=== PATIENT | female | born 1930 | race Caucasian/White ===

== ENCOUNTER → 2016-05-31 | Outpatient (CLI) | payer MEDICARE, BC ==
[~2016-05-31] MED LIST: ADVAIR 250-501 EACH INH; AVAPRO300 MG PO; CATAPRES0.1 MG PO; COLACE100 MG PO; COUMADIN **IA2.5 MG PO; CRESTOR20 MG PO; DIOVAN160 MG PO; DULERA 200 MCG/51 EA INH; FLONASE 50 MCG/16 GM NOSE; GABAPENTIN100 MG PO; LOVENOX 8080 MG/0.8 SUB-Q; MILK OF MA400 MG/5 M PO; NORVASC2.5 MG PO; OMNICEF 300MG300 MG PO; PROTONIX40 MG PO; PROVENTIL OR V6.7 GM INH; SPIRIVA HANDIHA1 KIT INH; TENORMIN50 MG PO; TRADJENTA5 MG PO; TYLENOL EXTRA500 MG PO; TYLENOL PM EX-1 EACH PO; TYLENOL650 MG R; ULORIC40 MG PO; ZOFRAN4 MG PO
== END | disposition disaster alternative care site (69) ==
LOC: GRAD 15:00
DX: R29.6 Repeated falls (principal); R53.1 Weakness; C34.31 Malignant neoplasm of lower lobe, right bronchus or lung; G31.9 Degenerative disease of nervous system, unspecified

== ENCOUNTER 2016-06-01 10:50 | Inpatient (IN) | payer MEDICARE, BC ==
[~2016-06-01] VITALS: Ht 152.4 cm; Wt 66.7 kg
--- NOTE | ~2016-06-01 | DS ---
PATIENT'S NAME: VERENICE ROLLINS [facility] AGE: 85 Y [address] ROOM: [address] [address] LOCATION: [facility] ADMIT DATE: 06/01/2016 Discharge Summary DISCHARGE DATE: 06/09/2016 FAMILY PHYSICIAN: Yudith Plasencia MD ATTENDING PHYSICIAN: Yudith Plasencia PRINCIPAL DIAGNOSES: 1. Multiple embolic strokes. 2. Confusion and weakness due to multiple embolic strokes. 3. Metastatic lung cancer, stable. 4. Hypertension. 5. Adult onset diabetes. 6. Hyperlipidemia. 7. Coronary artery disease. 8. Chronic obstructive pulmonary disease. 9. Severe aortic stenosis. 10. Mitral stenosis. 11. Neuropathy. 12. Increased confusion with Keppra and Remeron. SUMMARY: Verenice is an 85-year-old female with known stage IV lung cancer. She is following up with Dr. Chanda Fragoso. She is having increasing problems with balance, falls, memory, and confusion. Dr. Fragoso performed a CAT scan, which showed a stroke, and an MRI which showed multiple embolic strokes. I admitted her for further workup and treatment. Neurology consult, speech therapy, occupational therapy, and physical therapy were consulted and followed with her. Telemetry shows sinus rhythm. Neurology was consulted. She was placed on heparin per protocol due to the identification of multiple embolic strokes. Echo showed severe MS, severe , no vegetations, but did not proceed with a RICK as family and I did not feel that would really change our course of treatment. Dr. Yao and Chandana followed while she was inpatient. She had an episode where she had increased confusion and ataxia. A CT scan showed some edema, but an MRI showed a new embolic stroke. She was switched from heparin to Lovenox b.i.d. and Coumadin has been initiated. Her INR is now up to 1.9. Care Management helped with discharge planning. We are going to try to go to assisted living, but with the additional stroke while in the hospital she is not able to do that. DISMISSAL: Verenice is dismissed on 06/09/2016 in stable condition. She will continue to receive physical therapy, speech therapy, and occupational therapy. She will continue receiving the Coumadin and the Lovenox both until her INR is above 2.0 and then the Lovenox will be discontinued. We will get Accu-Cheks b.i.d. She is off of diabetic meds at this time. We will give her supplements as well as regular food. There are to do pro-times Monday, Monday, and Monday and call to me. PATIENT'S NAME: VERENICE ROLLINS [facility] AGE: 85 Y [address] ROOM: [place] [address] LOCATION: [facility] ADMIT DATE: 06/01/2016 Discharge Summary DISCHARGE DATE: 06/09/2016 FAMILY PHYSICIAN: Yudith Plasencia MD ATTENDING PHYSICIAN: Yudith Plasencia DISMISSAL MEDICATIONS: 1. Amlodipine 2.5 mg at h.s., but hold if blood pressure less than 140. 2. Tenormin 75 mg daily, hold if blood pressure less than 140. 3. Colace 100 mg daily. 4. Lovenox 70 mg subcutaneously q.12 h., but stop when INR greater than 2.0. 5. Uloric 40 mg daily for gout. 6. Protonix 40 mg daily for ulcer prevention. 7. Crestor 20 mg at h.s. for hyperlipidemia. 8. Valsartan 160 mg daily at h.s. for hypertension. 9. Coumadin 5 mg daily for the embolic strokes. 10. Dulera 200/5 two puffs daily for COPD. 11. Spiriva 1 inhalation daily for COPD. 12. Tylenol 650 q.4 h. orally or rectally as needed. 13. Catapres 0.1 mg p.o. b.i.d. for blood pressure greater than 180 systolic. 14. Milk of magnesia 30 mL daily p.r.n. constipation. 15. Proventil 2 puffs q.4 h. as needed for COPD. DISCHARGE INSTRUCTIONS: She will follow up with me in 5 days to recheck, sooner if problems. The Remeron and Keppra have been discontinued today as she had marked increased confusion through the night. We will also check some labs prior to dismissal. She will follow up with Dr. Fragoso in [address] Oliveira in a week to see if she is a candidate for rehab. Long-term prognosis is poor. Short-term is fair for some rehab if she can recover from the stroke and there is a chance she could get to assisted living. That is the family's goal and her goal as well. MD ANICETO CARROLL/modl /[id number] d: 06/10/16 0349 t: 06/11/16 0820, DISCHARGE SUMMARY
--- NOTE | ~2016-06-01 | CON ---
PATIENT'S NAME: GAMA ROLLINS [facility] AGE: 85 Y [address] ROOM: [place] [address] LOCATION: [facility] ADMIT DATE: 06/01/2016 Consultation DISCHARGE DATE: FAMILY PHYSICIAN: Yudith Plasencia MD ATTENDING PHYSICIAN: Yudith Plasencia REFERRING PHYSICIAN: Preeti Fragoos MD This is a consult for Dr. Plasencia. This 85-year-old lady is referred for rehab evaluation, admitted on 06/01/2016 with weakness, confusion, and with several falls history. CT scan was done with MRI, which showed multiple emboli, ischemic in character, small scattered. She has at the present time, slight weakness on the left side very minimum. She reports that she was feeling unsteady too throughout this time. PAST MEDICAL HISTORY: Past history of significance: 1. Status post carpal tunnel release. 2. Colonoscopy. 3. Coronary artery disease. 4. DC. 5. History of tonsillectomy and adenectomy. 6. Port placement. 7. Aortic stenosis. 8. 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 9. Coronary artery disease. 10. Chronic kidney disease. 11. Diabetes type 2. 12. Previous stroke and she recovered from it well. 13. Diverticulosis. 14. Gout. 15. Dyslipidemia. 16. Hypertension. 17. Peripheral vascular disease. At the present time, she feels that she is much better, alert, oriented x4. She has good attention span. Her speech is clear and not wet. Cranial nerves 2 through 12 are within normal limits. She has minimal if any small slight flattening of the left nasofacial fold in her face. Otherwise, no weakness, no paresthesia, no visual cut. Her voice is clear and not wet. Tongue and soft palate are moving symmetrical. Cranial nerves 2 through 12 are within normal limits. Left side seems to be a little bit weaker if any, she is right- handed, however. Neurologically intact. PATIENT'S NAME: GAMA ROLLINS [facility] AGE: 85 Y [address] ROOM: [place] [address] LOCATION: [facility] ADMIT DATE: 06/01/2016 Consultation DISCHARGE DATE: FAMILY PHYSICIAN: Yudith Plasencia MD ATTENDING PHYSICIAN: Yudith Plasencia Deep tendon reflexes present and equal throughout. Bowel and bladder are well controlled. MEDICATIONS: She is on the following medications: 1. Gabapentin. 2. Atenolol. 3. Spiriva. 4. Heparin sodium. 5. KCl. 6. Catapres. 7. Norvasc. 8. Crestor. 9. Diovan. 10. Uloric. 11. Benadryl. 12. Tylenol. 13. Dulera. 14. Insulin aspartate, mild per protocol. 15. Glucagon. 16. Glucose. 17. Dextrose. 18. NaCl 0.9%. 19. Albuterol. 20. Protonix. ASSESSMENT AND PLAN: The patient could ambulate 120 feet with a walker with minimum assistance and few cues if any. This lady has made very good progress so far. I feel that she will benefit probably from a short stay in [facility] and if that is not available, probably she will be helped better with home health, however, she needs to have enough help to her depending on her sources so she could be safe. She is advised not to drive until she is evaluated and to avoid alcoholic drinks. Please see my notes and she will continue on PT, OT, and speech for the time being. I will be following alongside with you. Thank you for this referral. PATIENT'S NAME: GAMA ROLLINS [facility] AGE: 85 Y [address] ROOM: [place] [address] LOCATION: [facility] ADMIT DATE: 06/01/2016 Consultation DISCHARGE DATE: FAMILY PHYSICIAN: Yudith Plasencia MD ATTENDING PHYSICIAN: Yudith Plasencia TOMMIE WEINBERG MD WMS/modl /[id number] d: 06/02/162044 t: 06/03/16 0803, CONSULTATION REPORT
--- NOTE | ~2016-06-01 | NDGEN ---
PATIENT'S NAME: GAMA ROLLINS [facility] AGE: 85 Y [address] ROOM: [address] [address] LOCATION: [facility] ADMIT DATE: 06/01/2016 Neurodiagnostics DISCHARGE DATE: FAMILY PHYSICIAN: Yudith Plasencia MD ATTENDING PHYSICIAN: Yudith Plasencia PROCEDURE: ELECTROENCEPHALOGRAM DATE OF PROCEDURE: 06/08/2016 TEST: TECH: CLINICAL DIAGNOSIS: THE PATIENT IS AN 85-YEAR-OLD FEMALE WITH HISTORY OF STAGE IV LUNG CANCER, WHO HAS BEEN UNDERGOING WHOLE-BRAIN RADIATION. SHE HAS HAD SEVERAL FALLS AND WEAKNESS. DURATION OF EE minutes. REASON FOR EEG: Mental status changes. EEG FINDINGS: The patient is awake for majority of the EEG. During maximal activation on the 7 hertz background seen in the posterior head region, which was symmetrical, rhythmical, waxing and waning. Activation procedures included photic stimulation between 3-30 hertz, which did not show any abnormalities. There was a consistent T5 artifact seen for most of the EEG. CLASSIFICATION: Abnormal one, awake, drowsy 10/20 scalp electrodes: Background, slow. IMPRESSION: This EEG shows evidence of a mild diffuse encephalopathy. No epileptiform discharges or EEG seizures were seen during this recording. MD PEREZ MOISE/ernie /[id number] dtt: 06/13/16 1021 ANGELO RAM MOHAN R. dtd: 06/09/16 0638
--- NOTE | ~2016-06-01 | CON ---
PATIENT'S NAME: GAMA ROLLINS [facility] AGE: 85 Y [address] ROOM: [place] [id number] LOCATION: [facility] ADMIT DATE: 06/01/2016 Consultation DISCHARGE DATE: 06/09/2016 FAMILY PHYSICIAN: Yudith Plasencia MD ATTENDING PHYSICIAN: Yudith Plasencia DATE OF CONSULTATION: 06/08/2016 REFERRING PHYSICIAN: Preeti Fragoso MD PALLIATIVE MEDICINE CONSULT LOCATION: Neurotrauma Unit Room 6231. REFERRING PROVIDER: Dr. Plasencia. CHIEF COMPLAINT: Palliative care referral due to family's request for additional support and assistance with goals of care. HISTORY OF PRESENT ILLNESS: The patient is an 85-year-old female with a history of stage IV lung cancer, who recently completed chemotherapy and whole-brain radiation. At home, she had been having a number of falls. She lives at home with her , who also has a diagnosis of cancer and had recently undergone surgery on his left arm for this. She has been following with Dr. Fragoso for her cancer. A CT and an MRI of her head revealed multiple embolic strokes. It should also be noted the patient had recently been hospitalized for influenza and weakness. During this hospital stay, she has had some difficulties with expressive aphasia, which has improved per nursing and family over the course of the last couple of days, but this has also waxed and waned. Given the patient's multiple comorbidities and debility, Palliative Care has been consulted per family's request to assist with goals and support. PAST SURGICAL HISTORY: 1. Bilateral cataracts. 2. Tonsillectomy. 3. Two-vessel CABG. 4. Bilateral CEA. 5. Left carpal tunnel release. 6. Trigger finger surgery. PAST MEDICAL HISTORY: 1. 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 ROOM: [address] [place] [id number] LOCATION: [facility] ADMIT DATE: 06/01/2016 Consultation DISCHARGE DATE: 06/09/2016 FAMILY PHYSICIAN: Yudith Plasencia MD ATTENDING PHYSICIAN: Yudith Plasencia brain radiation. 2. Aortic stenosis. 3. Coronary artery disease. 4. Chronic kidney disease. 5. COPD. 6. Diabetes mellitus type 2. 7. History of previous strokes. 8. Diverticulosis. 9. Hyperlipidemia. 10. Hypertension. 11. Peripheral vascular disease. MEDICATIONS: Please see current MAR. ALLERGIES: TO SULFA, PERCOCET, AND LEVAQUIN. 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 He also has a cancer diagnosed and recently had surgery himself. She has a history of smoking and quit many years ago. She also has a daughter as well as 2 stepdaughters. FAMILY HISTORY: Mother had diabetes, CHF, and hypertension, and at the age of 77. Her father had a history of stroke, at the age of 86. She has 2 brothers with high hypertension. A sister who from breast cancer and a sister who of Parkinson's. REVIEW OF SYSTEMS: GENERAL: Appetite is down. Weight is down a little bit. Positive for fatigue. No recent fever, chills, or night sweats. HEENT: She has had a little bit of vision changes with stroke. Denies any changes in hearing. Denies a headache. No sinus congestion or postnasal drainage. She does have hearing aids and glasses. RESPIRATORY: Denies shortness of breath or cough. CARDIOVASCULAR: No chest pain, pressure, or palpitations. Denies orthopnea. No peripheral edema. GASTROINTESTINAL: No nausea, vomiting, diarrhea, or constipation. She has had some difficulty swallowing while here at the hospital. GENITOURINARY: No dysuria, urinary frequency, or urgency. MUSCULOSKELETAL: Positive for weakness, positive for multiple recent falls. No major injuries. Denies any pain or discomfort at this time. NEUROLOGICAL: She has had some issues with her memory as well as weakness. PATIENT'S NAME: GAMA ROLLINS [facility] AGE: 85 Y [address] ROOM: [address] [place] [address] LOCATION: [facility] ADMIT DATE: 06/01/2016 Consultation DISCHARGE DATE: 06/09/2016 FAMILY PHYSICIAN: Yudith Plasencia MD ATTENDING PHYSICIAN: Yudith Plasencia She has a history of seizures in the past, none recent. INTEGUMENTARY: Denies any open areas to her skin. PSYCHIATRIC: Denies feeling overly depressed or anxious. Denies hallucinations or insomnia. PHYSICAL EXAMINATION: VITAL SIGNS: Blood pressure 145/65, heart rate 80, temperature 98.2, respirations 18, O2 saturations 96% on room air. GENERAL: Reveals an alert, drowsy, though easily arousable, oriented, elderly white female, who is sitting up in the recliner, does not appear to be in any acute distress at this time. HEENT: Normocephalic, atraumatic. She does have a cap on with significant alopecia. Pupils are equal and reactive to light. Sclerae are anicteric. Conjunctivae are pink. Tongue and mucous membranes are moist and pink. Dentition is poor. CARDIOVASCULAR: Heart tones are regular rate and rhythm. I am able to note a murmur. RESPIRATORY: Respirations are regular and nonlabored. Lung sounds are clear to auscultation bilaterally. I am not able to note any rales, rhonchi, or wheezes. GASTROINTESTINAL: Abdomen is soft, nontender. Bowel sounds are present. MUSCULOSKELETAL: No significant joint deformities. Peripheral pulses are 1+ bilaterally. There is no clubbing, cyanosis, or edema. SKIN: Warm and dry. No unusual lesions. Does have some bruising to bilateral upper extremities. Palliative performance scale is 40%. IMPRESSION AND PLAN: 1. Fatigue. 2. Depression. I agree with the prescribed Remeron. The patient's daughter does express some concern over the patient being depressed. 3. Weakness. Continue with PT and OT. 4. Code status. The patient is a full code. She does have healthcare power of neurosurgical physician assistant on her chart. I visited with the patient, introduced the role of palliative care for support and goals of care conversations as well as symptom management as needed while she is undergoing therapies and treatment. Discussed with her her goals as well as her worries and concerns. At this point, she states her goal is to be able to rehabilitate, so she can get back home even if just for a short period of time. She states that she is worried about her significant other, Tal, and how they will manage as they both undergo treatment as she states that Tal's condition is most likely worse than he thinks it is. She understands that she is going to need a skilled stay for at least a while. She states that both her and Tal also have long-term care insurance that will assist them when PAT[facility]'S NAME: [facility] AGE: 85 Y [address] ROOM: [address] [address] LOCATION: [facility] ADMIT DATE: 06/01/2016 Consultation DISCHARGE DATE: 06/09/2016 FAMILY PHYSICIAN: Yudith Plasencia MD ATTENDING PHYSICIAN: Yudith Plasencia needed should they have to go stay at the [facility] versus an assisted living facility, and this gives her some relief. I also visited with the patient' significant other, Tal, briefly on the role of palliative care as well for additional support and symptom management. I will continue to follow this patient and family on an outpatient basis as well and assist as needed with goals of care conversations and symptom management. It should also be noted that I did visit with the patient's daughter on June 07, 2016, and introduced the role of palliative care for additional support and symptom management. I had a good 25-minute visit with her and provided emotional support and education on symptoms and disease introductory. Total visit today was 45 minutes, greater than 50% of this time was spent providing education, counseling, and support. Thank you for allowing me to assist this patient and family. SIERRA CUADRA, RIKA FOR DERIC LEVIN MD DLS/modl /[id number] CC: Yudith Plasencia MD d: 06/14/16 0252 t: 07/11/16 0915, CONSULTATION REPORT
--- NOTE | ~2016-06-01 | CON ---
[facility] AGE: 85 Y [address] ROOM: G6231 [place], [place] [address] LOCATION: [facility] ADMIT DATE: 06/01/2016 Consultation DISCHARGE DATE: FAMILY PHYSICIAN: Yudith Plasencia MD ATTENDING PHYSICIAN: Yudith Plasencia DATE OF CONSULTATION: 06/04/2016 REFERRING PHYSICIAN: Preeti Fragoso MD CARDIOLOGY CONSULTATION REASON FOR CARDIOLOGY CONSULTATION: Embolic stroke with history of heart disease. HISTORY OF PRESENT ILLNESS: This is an 85-year-old female with a history of aortic stenosis, hypertension, hyperlipidemia, coronary artery disease, and CABG. She normally follows cardiology care with Dr. Donald Phillips. She is currently admitted under the care of Dr. Yudith Plasencia with multiple embolic strokes as well as confusion. She has been having some increased episodes of fall recently. She denies any chest pain or palpitations. She does have some complaints of possible syncope or loss of consciousness during her falls due to being "fuzzy" on the details related to pre-fall and post-fall. She also admits that she has had some nausea and vomiting within the last week. At this time, she is resting comfortably in her chair in no acute distress. PAST MEDICAL HISTORY: 1. Hypertension. 2. Hyperlipidemia. 3. Coronary artery disease. 4. Aortic stenosis. 5. Lung cancer with metastases to the brain. 6. Chronic kidney disease. 7. COPD. 8. Diabetes mellitus. 9. Gout. 10. Peripheral vascular disease. PAST SURGICAL HISTORY: 1. Coronary artery bypass grafting. 2. Tonsillectomy. 3. Adenoidectomy. 4. Carpal tunnel release. FAMILY HISTORY: PATIENT'S NAME: GAMA ROLLINS [facility] AGE: 85 Y [address] ROOM: G6231 [place], [place] [address] LOCATION: [facility] ADMIT DATE: 06/01/2016 Consultation DISCHARGE DATE: FAMILY PHYSICIAN: Yudith Plasencia MD ATTENDING PHYSICIAN: Yudith Plasencia The patient's mother had a history of diabetes mellitus, type 2 as well as congestive heart failure and hypertension. Mother at the age of 77. The patient's father had multiple strokes and at the age of 86. She has two sisters with hypertension and one sister who due to breast cancer. She has another sister who due to Parkinson disease. SOCIAL HISTORY: The patient is a former cigarette smoker. She smoked 1 pack of cigarettes per day for a total of 30 years. She quit smoking in 1983. She denies alcohol or illicit drug use. CURRENT MEDICATIONS: 1. Dulera 200/5 mcg 2 puffs inhaled daily. 2. Spiriva 1 puff inhaled daily. 3. Benadryl 50 mg p.o. daily in the evening. 4. Coumadin 2 mg p.o. daily. 5. Crestor 20 mg p.o. daily in the evening. 6. Diovan 160 mg p.o. daily in the evening. 7. Potassium chloride 20 mEq p.o. twice daily. 8. Neurontin 100 mg p.o. daily. 9. Norvasc 2.5 mg p.o. daily in the evening. 10. Protonix 40 mg p.o. daily. 11. Tenormin 75 mg p.o. daily. 12. Tylenol 1000 mg p.o. daily in the evening. 13. Uloric 40 mg p.o. daily in the evening. 14. Lovenox 70 mg subcutaneous twice daily. 15. NovoLog subcutaneous on a mild sliding scale per a.c. and at bedtime Accu-Cheks. MEDICATION ALLERGIES: 1. Sulfa. 2. Quinolones specifically Levaquin causing sickness. 3. Oxycodone and Percocet causing sickness. REVIEW OF SYSTEMS: Pertinent positive review of systems are listed in the HPI. All other review of systems evaluated and negative. LABORATORY DATA AND IMAGING STUDIES: Diagnostics: Her echocardiogram shows an ejection fraction of 45 to 50% with severe diastolic dysfunction. She also has ahysygsx-zx-sdbamc mitral stenosis as well as aortic stenosis. PHYSICAL EXAMINATION: VITAL SIGNS: Temperature 98.2, pulse 84, respirations 18, blood pressure PATIENT'S NAME: GAMA ROLLINS [facility] AGE: 85 Y [address] ROOM: [address] [place], [place] [address] LOCATION: [facility] ADMIT DATE: 06/01/2016 Consultation DISCHARGE DATE: FAMILY PHYSICIAN: Yudith Plasencia MD ATTENDING PHYSICIAN: Yudith Plasencia 157/70, and O2 saturation 99% on room air. The patient weighs 68.9 kg. SKIN: [place], warm, and dry. EYES: Sclerae clear. No xanthelasmas. ENT: Oral mucosa is pink and moist. No jugular venous distention. No carotid bruits. CHEST: Respirations are even and unlabored. LUNGS: Clear to auscultation. HEART: Regular rate and rhythm. Normal S1, but she does have a diminished S2. She also has the presence of a 3/6 systolic murmur. ABDOMEN: Soft and nontender. MUSCULOSKELETAL: Equal muscle strength to upper and lower extremities bilaterally against resistance upon initial evaluation. Upon close measurement of her neurovascular status, she does have some very mild left- sided weakness noted. EXTREMITIES: Peripheral pulses palpable. No clubbing, cyanosis, or edema. PSYCHIATRIC: Alert and oriented. Mood and affect are appropriate. IMPRESSION AND PLAN: Per Dr. Green: 1. Severe aortic and mitral stenosis. She does have complaints of dyspnea, but no angina or documented syncope. 2. Coronary artery disease with a history of coronary artery bypass grafting. She has no complaints of angina and is currently tolerating her beta-milton and statin. She is followed by Dr. Donald Phillips for Cardiology and we will inform him of her admission. 3. Multiple embolic strokes. Currently been started on Coumadin and is on Lovenox as a bridge. 4. Stage IV lung cancer with brain metastases. 5. Hypertension. 6. Hyperlipidemia. 7. Chronic obstructive pulmonary disease. Given her stage IV lung cancer, her cardiac problems are of lesser importance as long as she is feeling well and tolerating her medical treatment. We have no further recommendations for cardiac workup or interventions. Thank you Dr. Yudith Plasencia for this consult. Thank you for allowing [facility] to interact in the care of this patient. CHA HERRERA MD DEH/ernie PATIENT'S NAME: GAMA ROLLINS [facility] AGE: 85 Y [address] ROOM: [address] [place] [id number] [facility] ADMIT DATE: 06/01/2016 Consultation DISCHARGE DATE: FAMILY PHYSICIAN: Yudith Plasencia MD ATTENDING PHYSICIAN: Yudith Plasencia /[id number] d: 06/05/16 1237 t: 06/09/16 1431, CONSULTATION REPORT
--- NOTE | ~2016-06-01 | CON ---
PATIENT'S NAME: GAMA ROLLINS [facility] AGE: 85 Y [address] ROOM: [address] [address] LOCATION: [facility] ADMIT DATE: 06/01/2016 Consultation DISCHARGE DATE: FAMILY PHYSICIAN: Yudith Plasencia MD ATTENDING PHYSICIAN: Yudith Plasencia REFERRING PHYSICIAN: Preeti Fragoso MD CHIEF COMPLAINT: Worsening mental status. HISTORY OF PRESENT ILLNESS: Neurology was consulted stat for change in mental status. Apparently, the last time she was at baseline was 3 hours prior to the call. That call was placed at 4:59, and I looked in at 5:05. Per nursing staff, the patient has some baseline aphasia, and she has some intermittent speech, but when they woke her up to check on her, she seemed to be more fragmented and not speaking clearly. No new weakness was seen. The patient seems a little bit confused as well, no seizures have been seen, but the patient was started on a seizure medication per the nursing staff. The patient has no brain metastasis from lung cancer and has received chemotherapy, and the patient is currently admitted for balance problems which led to an MRI which showed bihemispheric strokes suggestive of embolic phenomenon. The patient is currently on Coumadin and Lovenox. Her INR is 1.7. At the time of the call, the patient seems to have been improving and feels better speech is at her baseline, although she remains a little bit confused and lethargic. PHYSICAL EXAMINATION: She is alert and awake. She knows the month and her age. She can name. She can repeat. She can read sentences. Although she is awake, she is a little bit lethargic and dozes off from time to time, and sternal rub needs to be done to wake her up. Cranial Nerves: Extraocular movements are intact. No facial weakness. Field cut is difficult to assess since the patient kept her eyes closed and would not open them. Facial sensation is intact. Motor: Moves all extremities equally. The patient does not really want to cooperate, but she is able to do full strength against nurse and tries to get up on her own. Sensory intact to painful stimuli. Coordination: The patient refuses to cooperate for this part. DIAGNOSTIC DATA: Repeat CT of the head is pending. ASSESSMENT AND PLAN: Confusion. Unclear etiology. Could be especially stroke, could be hemorrhage, or it could be some postictal phenomenon from her known metastasis and recurrence and stroke . Right now, per nurse, her exam is at baseline, but she is a little bit confused. Again, this could probably fit PATIENT'S NAME: GAMA ROLLINS [facility] AGE: 85 Y [address] ROOM: [place] [address] LOCATION: [facility] ADMIT DATE: 06/01/2016 Consultation DISCHARGE DATE: FAMILY PHYSICIAN: Yudith Plasencia MD ATTENDING PHYSICIAN: Yudith Plasencia with a postictal period if she had a seizure that was unwitnessed and slowly improving. I would recommend to get a CT of the head without contrast stat to make sure that the patient has not had a hemorrhage. If the patient continues like this, repeat MRI of the brain should be done. TPA considered, not a candidate. Recent stroke and on Coumadin and Lovenox, and the exam is at baseline per nursing staff. Neurology to follow the patient today again to see how she is doing during the day. Consider repeat EEG as well. Check carotid Dopplers. Continue neurologic checks. PT, OT, and Speech Therapy. Lipid panel. Start statin if LDL is above 70. Call with questions. FABY CABELLO MD AF/modl /[id number] d: t: 06/09/16 1140, CONSULTATION REPORT
--- NOTE | ~2016-06-01 | CON ---
PATIENT'S NAME: GAMA ROLLINS [facility] AGE: 85 Y [address] ROOM: [address] [address] LOCATION: [facility] ADMIT DATE: 06/01/2016 Consultation DISCHARGE DATE: FAMILY PHYSICIAN: Yudith Plasencia MD ATTENDING PHYSICIAN: Yudith Plasencia DATE OF CONSULTATION: 06/02/2016 REFERRING PHYSICIAN: Preeti Fragoso MD NEUROLOGY CONSULTATION HISTORY OF PRESENT ILLNESS: The patient was seen in neurological consultation on 06/02/2016. Neurology briefly saw Ms. 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 Evidence on this admission showed small embolic CVAs on the MRI that were hardly visible on the CAT scan. These small strokes are fairly scattered and fairly punctate. Standpoint of a neurological compromise, the patient stated that she felt a bit off balance in her left leg, but overall did not notice any significant change in her particular weakness on one side of the body other than being generally weaker with some imbalance. Even stated that she had a fall a few days prior to coming to the hospital. However, she did have a recent hospitalization for the flu and had come back home a bit weaker. In general, the patient states that she does not have any headaches. Currently, she demonstrated fairly symmetric power in testing today of her arms and her legs. Thus she was sitting mostly in her chair, she was able to do some basic ambulation and her mental status remains quite normal. She denied any confusion. She denied any headaches. At the time of my seeing the patient, she had already been started on IV heparin. Based upon my discussion with Dr. Plasencia considering that the small embolic strokes will likely either due to in situ thrombosis from her metastatic lung cancer versus the small possibility she may be having small emboli from a cardiac valve. It was noted that on transthoracic echocardiogram, she had severely sclerosed mitral valve and aortic valve though no firm vegetation was seen. It is certainly possible that the advanced changes seen in the valves may serve as a nidus for a possibility of small marantic emboli. PAST MEDICAL HISTORY: On prior medical history, a significant medical history of multiple issues includes: 1. Diabetes, type 2. 2. Dyslipidemia. 3. Hypertension. PATIENT'S NAME: GAMA ROLLINS [facility] AGE: 85 Y [address] ROOM: [place] [address] LOCATION: [facility] ADMIT DATE: 06/01/2016 Consultation DISCHARGE DATE: FAMILY PHYSICIAN: Yudith Plasencia MD ATTENDING PHYSICIAN: Yudith Plasencia 4. Gout. 5. Peripheral vascular disease. 6. Coronary artery disease. 7. History of known aortic and mitral valve stenosis. 8. History of known lung cancer with metastasis discovered to the brain. CURRENT MEDICATIONS: A partial list of the multiple medications include: 1. Atenolol. 2. Catapres. 3. Norvasc. 4. Crestor. 5. Diovan. 6. Spiriva. 7. Protonix. PAST SURGICAL HISTORY: Surgical history includes: 1. Carpal tunnel release surgery. 2. Trigger finger release surgery. 3. Tonsillectomy and adenoidectomy. 4. Coronary artery bypass graft. IN-HOSPITAL MEDICATIONS: Include: 1. Enoxaparin 70 mg twice a day until therapeutic on warfarin. 2. Gabapentin 100 mg q. day. 3. Atenolol 75 mg q. day. 4. Potassium chloride 20 mEq p.o. b.i.d. 5. Clonidine 0.1 mg q.12 hours. 6. Amlodipine 2.5 mg p.o. at bedtime. 7. Atorvastatin 20 mg p.o. at bedtime. 8. Valsartan 160 mg at bedtime. 9. Regular insulin sliding scale coverage. REVIEW OF SYSTEMS: All systems were reviewed and were negative except for what was noted in the HPI. PHYSICAL EXAMINATION: GENERAL APPEARANCE: The patient is sitting up in her chair. She is in no acute distress. Her mental status is excellent. She speaks fluently and without any dysarthria or any language deficits. Naming of objects and parts of objects are normal. VITAL SIGNS: Show a pulse of 95 and regular, respiratory rate 12, blood PATIENT'S NAME: GAMA ROLLINS [facility] AGE: 85 Y [address] ROOM: [place] [address] LOCATION: [facility] ADMIT DATE: 06/01/2016 Consultation DISCHARGE DATE: FAMILY PHYSICIAN: Yudith Plasencia MD ATTENDING PHYSICIAN: Yudith Plasencia pressure 123/57, temperature 99.0 degrees, and pulse oxygenation is 94% on 2 L nasal cannula. NEUROLOGIC: In general, patient as mentioned above is alert and oriented. Answers all questions appropriately, though does not elaborate much on her medical history. She seems to be content but a bit frustrated. Cranial nerves 2 through 12 were intact. Motor exam revealed no evidence of any pronator drift. There is symmetric power in the bilateral upper extremities of 5/5, power in the left lower extremity. I sensed a bit of decreased tone compared to the right side. Plantar flexion, eversion, and inversion of the feet as well as leg extension was a bit weak at 4+/5. Though the patient can stand up on her own. She did not display any dizziness. Her gait was slow and cautious, but no evidence of circumduction of her gait. IMPRESSION AND PLAN: I agree with Dr. Plasencia concerning the use of anticoagulation with bridging of Lovenox dose twice daily with a goal to get the warfarin therapeutic at an INR between 2.0 to 2.5. It is likelihood of a hypercoagulable state with a small little in situ foci for hematologic spread of her lung cancer to the brain is certainly possible, but it is also possible that very small [place] emboli could be playing a role here that are not easily visualized on her sclerotic cardiac valves. The start of anticoagulation should not present an issue with bleeding per se in the brain due to the fact that these are very small punctate strokes and the risk for hemorrhagic conversion I do believe is very low. In general from a neurological exam, she is remarkably good and she has had a long history of dealing with her known cancer as well as receiving brain chemotherapy. She remains in good spirit and wants to continue with whatever treatment would be necessary. I discussed with her the general treatment for the thrombotic small emboli and she understands the nature of the protocol here on and out. Physical therapy, we will likely include either a short stay here in our facility or possibly going to a short-term skilled facility or even home with Home Health Care pending on the home resources available for her. She has multiple family members who have visited her in the hospital with good family support. I do want to thank Dr. Yudith Plasencia for allowing me to participate in discussions with her in the care of this patient. MD ONEIL MONROY/ernie PATIENT'S NAME: GAMA ROLLINS [facility] AGE: 85 Y [address] ROOM: [place] [address] LOCATION: [facility] ADMIT DATE: 06/01/2016 Consultation DISCHARGE DATE: FAMILY PHYSICIAN: Yudith Plasencia MD ATTENDING PHYSICIAN: Yudith Plasencia /[id number] d: 06/04/162227 t: 06/07/16 1554, CONSULTATION REPORT
--- NOTE | ~2016-06-01 | ECHO ---
Transthoracic Echocardiography Report (TTE) Demographics Patient Name GAMA ROLLINS Date of Study 06/02/2016 Patient Number [id number] Visit Number [id number] Date of 1930 Room Number G6231 Accession Number [id number] Gender Female Age 85 year(s) Referring Luis Angel Leslie MD Water Conservation Specialist Carson Matos Physician Physician Interpreting Norma Mcgregor Buggy Runner Physician A Supervising Ordering Physician Luis Angel Leslie MD, MD/P Nurse Stress Cash Poster Conclusions Contractility Score Summary At rest the following contractility abnormalities were noted: Hypokinesis of the Mid infero-septal, the Basal andry-septal and the Basal infero-septal segments. Contractility of all other segments appeared normal. Summary The estimated left ventricular ejection fraction is 45-50%. The left ventricle is normal in size . Mild concentric left ventricular hypertrophy. Restrictive filling pattern (severe diastolic dysfunction). Trivial mitral regurgitation by color Doppler. Moderate mitral annular calcification. Severe calcification of the mitral valve. Moderate to severe mitral valve stenosis. The mean gradient is 12 mmHg. The aortic valve is moderately sclerotic. There is moderate aortic regurgitation by color Doppler. There is moderate to severe aortic stenosis by the Continuity Equation. The peak velocity is 2.78 m/s, the mean gradient is 17 mmHg, and the valve area based on the continuity equation is 0.67 cm2, stroke volume index is 21 ml/m2. Procedure Type of Study TTE procedure:2D Echocardiogram, M-Mode, Doppler , Color Doppler. Procedure Date Date: 06/02/2016 Start: 09:29 AM Study Location: Inpatient Portable Technical Quality: Good visualization Indications:TIA. Appropriate Use Criteria: 9 Patient Status: Routine HR: 98 bpm BP: 146/67 mmHg Allergies - Other:(Levaquin, Percocet, Sulfa). M-Mode/2D Measurements LV Diastolic Dimension: 3.6 cm LV Systolic Dimension: 2.6 cm LV Septum Diastolic: 1.26 cm LV PW Diastolic: 1.15 cm AO Root Dimension: 2.2 cm Cardiac Output: 3.41 l/min LA Dimension: 2.4 cm EF Estimated: 40 % LVOT: 1.6 cm LVOT VTI: 17.3 cm RV Base: 2.78 cm LV Stroke volume: 34.77 ml RV Length: 5.37 cm TAPSE: 1.17 cm TDI-S': 8.88 cm/s Doppler Measurements AV Peak Velocity: 2.78 m/s MV Peak E-Wave: 1.76 m/s AV Peak Gradient: 30.91 mmHg AV Mean Gradient: 17 mmHg MV P1/2t: 58 msec LVOT Peak Velocity: 0.86 m/s MV Mean Gradient: 16 mmHg AV P1/2t: 263 msec MV Deceleration Time: 106 msec TR Gradient:30.25 mmHg PV Peak Velocity: 1.69 m/s Estimated RAP:3 mmHg PV Peak Gradient: 11.42 mmHg Estimated RVSP: 33 mmHg Estimated PASP: 33.25 mmHg E' Septal Velocity: 0.13 m/s E' Lateral Velocity: 0.12 m/s Findings Left Ventricle The left ventricle is normal in size . Mild concentric left ventricular hypertrophy. Restrictive filling pattern (severe diastolic dysfunction). Right Ventricle Mildly reduced right ventricular function. Mildly dilated right ventricle. Left Atrium Normal left atrial size. Right Atrium Normal right atrial size. IVC measures 1.22 cm with inspiratory collapse. Mitral Valve Trivial mitral regurgitation by color Doppler. Moderate mitral annular calcification. Severe calcification of the mitral valve. Moderate to severe mitral valve stenosis. The mean gradient is 12 mmHg. Aortic Valve The aortic valve is moderately sclerotic. There is moderate aortic regurgitation by color Doppler. There is moderate to severe aortic stenosis by the Continuity Equation. The peak velocity is 2.78 m/s, the mean gradient is 17 mmHg, and the valve area based on the continuity equation is 0.67 cm2, stroke volume index is 21 ml/m2. Tricuspid Valve Trivial tricuspid regurgitation by color Doppler. Pulmonic Valve Normal pulmonic valve structure and function. Pericardial Effusion No evidence of pericardial effusion. Miscellaneous Visualized portions of the aortic root and ascending aorta appear normal in size. Pleural Effusion No evidence of pleural effusion. Contractility Score LV regional wall motion:(0-Non visualized 1-Normal 2-Hypokinesis 3-Akinesis 4-Dyskinesis 5-Aneurysm) Signature dtt: José Luis Green dtd: 06/02/16 0929 Physician Self Edit
--- NOTE | ~2016-06-01 | HP ---
PATIENT'S NAME: VERENICE ROLLINS [facility] AGE: 85 Y [address] ROOM: [place] [address] LOCATION: [facility] ADMIT DATE: 06/01/2016 History & Physical DISCHARGE DATE: FAMILY PHYSICIAN: Yudith Plasencia MD ATTENDING PHYSICIAN: Yudith Plasencia DATE OF SERVICE: CHIEF COMPLAINT: Strokes. HISTORY OF PRESENT ILLNESS AND COURSE: Verenice is an 85-year-old female with a history of stage IV lung cancer who has been undergoing whole brain radiation and chemo. She was then seeing Dr. Fragoso and later had several falls and weakness. A CT of the head showed a recent CVA and MRI showed multiple embolic CVAs. Her balance has been poor, she has had multiple falls, she was recently hospitalized for influenza and weakness, and was doing better at home just until recently. PAST MEDICAL HISTORY: Operations include carpal tunnel release, colonoscopy, coronary artery bypass grafting, D and C, tonsillectomy and adenoidectomy, trigger finger surgery, and port placement. Illnesses include history of aortic stenosis, lung cancer with malignant mets to the brain, coronary artery disease, chronic kidney disease, COPD, adult- onset diabetes, prior stroke, diverticulosis, gout, hyperlipidemia, hypertension, and peripheral vascular disease. CURRENT MEDICATIONS: 1. Advair 250/50 one inhalation b.i.d. 2. Amlodipine 2.5 mg daily. 3. Atenolol 50 mg one and half tabs b.i.d. 4. Avapro 300 mg daily. 5. Clonidine 0.1 mg b.i.d. 6. Crestor 20 mg a day. 7. Flonase 1 squirt in nasal passages daily. 8. Gabapentin 100 mg b.i.d. as needed for nerve pain. 9. Proventil HFA 2 puffs q.6 h. p.r.n. 10. Spiriva 1 inhalation daily. 11. Tradjenta 5 mg daily. 12. Tylenol Extra Strength 500 mg 2 tabs at h.s. 13. Uloric 40 mg daily. ALLERGIES: PATIENT'S NAME: VERENICE ROLLINS [facility] AGE: 85 Y [address] ROOM: [place] [address] LOCATION: [facility] ADMIT DATE: 06/01/2016 History & Physical DISCHARGE DATE: FAMILY PHYSICIAN: Yudith Plasencia MD ATTENDING PHYSICIAN: Yudith Plasencia LEVAQUIN, AND SULFA. FAMILY HISTORY: Positive for Alzheimer's, osteoarthritis, rheumatoid arthritis, cardiovascular disease, congestive heart failure, osteoporosis, osteoarthritis, hypertension, diabetes, gout, depression, Parkinson's, stroke, cardiovascular disease, and thyroid disorders. SOCIAL HISTORY: She quit smoking many years ago. She is with her long-term chinese herbalist. She has good supportive family the one daughter and two stepdaughters who help look after her. Her immunizations are all up-to-date. She and her significant other live together independently; although, she has been doing that fairly precariously lately. REVIEW OF SYSTEMS: GENERAL: She has been weak, increased falls, confusion. ENT: She wears hearing aids and does have glasses. CARDIOVASCULAR: She denies any chest pain or shortness of breath. RESPIRATORY: Negative. GI: Some nausea. : Negative. MUSCULOSKELETAL: Negative. DERM: Negative. PSYCH: Negative. NEURO: Positive for confusion, decreased memory, weakness, more on the left- side than the right recently. PHYSICAL EXAMINATION: GENERAL: Verenice is a well-developed, well-nourished, 85-year-old female. She is alert, oriented, and cooperative. Oriented to person, place, and cooperative. VITAL SIGNS: Temp is 97.8, pulse 83 and regular, respirations 16, blood pressure 174/79, and O2 sat is 96% on room air. Weight 153, height 5 feet, 0 inches, BMI 29.8. HEENT: On exam, sclerae clear. Oropharynx is unremarkable. Teeth are in good repair. She has got a cap on and has a fair amount of alopecia. HEART: Regular rate and rhythm with a grade 2/6 systolic murmur heard best at the right second intercostal space. LUNGS: Lung ulloa reveals slight expiratory wheezes, good excursion, and no labored breathing. ABDOMEN: Soft, no organomegaly or masses, minimal discomfort with palpation. EXTREMITIES: Reveal no pitting edema. She actually has pretty good strength, ankle flexors and extensors, and both hand airline reservationist. PATIENT'S NAME: VERENICE ROLLINS [facility] AGE: 85 Y [address] ROOM: [place] [address] LOCATION: [facility] ADMIT DATE: 06/01/2016 History & Physical DISCHARGE DATE: FAMILY PHYSICIAN: Yudith Plasencia MD ATTENDING PHYSICIAN: Yudith Plasencia LABORATORY WORK: Her CBC and chemistry panel looked good. CPK and CK-MB are normal. Her troponin is slightly elevated at 0.059. A1c is 6.3. Head CT showed a large old infarct in the left occipital lobe and a hypodense focus in the right thalamic area showing a subacute infarct. MRI of the brain shows multiple embolic ischemic area, 13 punctate ischemic lesions on the right hemisphere, 1 in the left cerebellum, and 2 in the left hemisphere. ASSESSMENT: 1. Multiple embolic strokes with confusion, falls, and mild left-sided weakness. 2. 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 3. Recent influenza. 4. Hypertension. 5. Hyperlipidemia. 6. Adult-onset diabetes. 7. Prior tobacco use. 8. Chronic obstructive pulmonary disease. PLAN: She is being admitted to the hospital as an inpatient. We will put her on stroke protocol. We will order carotid ultrasound as well as an echocardiogram. We went ahead and started her on some heparin, but have cautioned her regarding fall risk and bleeding. She is on telemetry and we will keep her blood pressure between 140 and 180. She does wish to be a full code at this time. Prognosis is guarded. We will have Care Management to get involved as well as far as discharge planning. She would be a candidate for rehab if Dr. Oliveira agrees possibly [facility] or a different skilled facility. Her safety is our primary concern. MD ANICETO CARROLL/ernie /[id number] D: [id number] T: [id number] HISTORY & PHYSICAL
[~2016-06-01 10:50] MED LIST changes: -COLACE100 MG PO; -COUMADIN **IA2.5 MG PO; -DIOVAN160 MG PO; -DULERA 200 MCG/51 EA INH; -FLONASE 50 MCG/16 GM NOSE; -LOVENOX 8080 MG/0.8 SUB-Q; -MILK OF MA400 MG/5 M PO; -PROTONIX40 MG PO; -TYLENOL650 MG R; -ZOFRAN4 MG PO
--- NOTE | 2016-06-01 16:49 | NUR ---
Patient is 85 yo female admitted this afternoon after being seen in clinic for increasing number of falls, increasing confusion and inability to think clearly according to patient. patient lives in [place] w/her significant other. she states he is in the hospital after having surgery. 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 Educatio is given as documented. patient denies questions. pneumatics are on bilaterally. allergy and fall bracelets are on. call light is within reach. patient denies needs at this time. report is giveen to LELAND Ferreira.
[2016-06-01 17:27] LABS: BASOPHIL % 0.3 %; EOSINOPHIL # 0.1 K/uL (0.0-0.5); EOSINOPHIL % 1.8 %; HEMATOCRIT 34.3 % (30.0-46.0); HEMOGLOBIN 11.2 g/dL (10.0-15.0); IMMATURE GRANULOCYTE % 0.3 %; LYMPHOCYTE % 12.5 %; MCH 30.4 pg (27.0-34.0); MCHC 32.7 gm/dL (32.0-36.5); MONOCYTE # 0.9 K/uL (0.0-1.0); MONOCYTE % 11.5 %; MPV 9.4 fl (9.4-12.4); NEUTROPHIL # (ANC) 5.8 K/uL (1.8-7.8); NEUTROPHIL % 73.6 %; NRBC % 0 /100WBC (0-0.00); RBC 3.69 M/uL (3.00-5.00); RDW-CV 15.4 % (11.9-14.6); WBC 7.8 K/uL (4.0-11.0)
[2016-06-01 17:29] LABS: PLATELET COUNT 211 K/uL (150-450)
[2016-06-01 17:35] LABS: PROTIME 10.8 SECONDS (9.6-11.1); PTT 26 SECONDS (25-32)
[2016-06-01 17:48] LABS: ANION GAP 13.6 (10.0-19.0); CALCIUM 8.6 mg/dL (8.5-10.5); CREATININE 0.9 mg/dL (0.5-1.1); POTASSIUM 3.6 mMol/L (3.7-5.1)
--- NOTE | 2016-06-01 18:00 | NUR ---
Significant Event: Patient admitted at 1500. A/O X3. Denies N/T. Generalized weakness. NIHSS 0. Denies headache/N/T. Follows commands. Moves everything spontaneously. Blurred vision intermittently. VSS. Room air with sats in the mid 90s. LS clear and diminished. Voids per toilet. BS active X4. Port to be accessed in left chest. Stroke pathway initiated. Family at bedside. 1-2 assist. Accuchecks ACHS with SSI. Diabetic diet. Pleasant and cooeprative with cares. Follow up:
--- NOTE | 2016-06-02 04:26 | NUR ---
Significant Event: The patient is Alert and Oriented x3. Forgetful at times. Denies Numbness and Tingling. Moves all extremities spontaneously and to command. Up with 2 assist to the commode. NIHSS 0. VSS, Hypertensive at times. On room air. No complaints of pain. Port to her Left chest infusing NS at 75ml/hr and a Heparin Gtt. Accu checks ACHS. Scattered abrasions and bruising. Follow up:
[2016-06-02 04:31] LABS: ANION GAP 11.7 (10.0-19.0); CALCIUM 7.8 mg/dL (8.5-10.5); CREATININE 0.9 mg/dL (0.5-1.1); POTASSIUM 3.7 mMol/L (3.7-5.1)
--- NOTE | 2016-06-02 12:45 | NUR ---
Introduced self and role of care management to patient and her S.O.'s daughter. Patient lives in [place] with S.O. S.O. is currently in the hospital also. His daughter says he may be discharged later today, but he will not be able to assist patient at home for hardeep. Talked with them about inpatient rehab and skilled care; what each is, the differences and medicare coverage. Dr. Oliveira here to assess patient. Dr. Oliveira says they do not have any opening on GIRP at this time. Dr. Plasencia here and she says patient will need with SNF or GIRP before returning home. Rafi's daughter asks to talk with me in the arce. She, her sister and Verenice's daughter have been looking into ALFs and trying to encourage them to consider NURSING HOME. She says Verenice and Tal have health problems and it is getting harder for them to be at home. Told her Dr. Plasencia said Verenice would need SNF before going home or to [facility]. Talked with her about options for SNF in [place]. She will discuss options with Verenice's daughter. She had questions regarding ALFs. Answered her questions. She says their preference would be skilled for Verenice and then [facility] for both of them. Verenice does have a LTC policy and I encouraged them to review it to see what it covers. She will discuss with Verenice's daughter and then get back to me regarding SNF choices. Will follow.
--- NOTE | 2016-06-02 13:18 | NUR ---
CONSULT RECEIVED PER STROKE PROTOCOL. PT HAS LUNG CA W/ METS TO BRAIN. DEFERRING DIET ED AT THIS TIME D/T PRIMARY DX.
--- NOTE | 2016-06-02 16:20 | NUR ---
Significant Event:PT IS AAOX3. FORGETFUL. PUPIL EQUAL AND REACTIVE. NO NEW NUMBNESS OR TINLGING. DID STATE SHE HAS CHRONIC NUMBNESS TO LEFT HAND. CLEAR LUNG SOUNDS. ACTIVE BS. SCATTERED ABRASION. SCAB TO BACK OF HEAD. ACHS ACCU CHECKS. ON HEPARIN DRIP. NEXT PTTHP AT 1700. NO C/O PAIN. PORT ACCESS TO LEFT CHEST. PT NOT TO HAVE STRAWS PER SPEECH. UP 1A GB WALKER. NIHSS 0 Follow up:MONITOR LOC. HANDS ON WHEN TRANSFERING.
--- NOTE | 2016-06-03 04:23 | NUR ---
Pt A&Ox3. Forgetful at times. NIH scale remains at 0. Continues to report N/T to left hand, which is not a new finding. Denies pain throughout shift. Heparin gtt to left chest port, next PTTHP at 0600. Pleasant and cooperative.
--- NOTE | 2016-06-03 12:48 | NUR ---
Put patient on TCU waiting list. Spoke with staff at [facility] this a.m. and they have female beds and would consider patient. Left VMM for Rosario at [facility]. Spoke with Verenice regarding discharge plans and need for skilled care. She voices understanding. Asked her for her preferences and she says not [facility], but [facility] or [facility] would be OK. Asked her about radiation and chemo and she says she is done with both of them. Called Rosario at [facility] and they have beds and would consider patient. Information/referra faxed to both [facility] and [facility]. Will follow.
--- NOTE | 2016-06-03 15:53 | NUR ---
Asked to come speak with Tal's daughter and met with her in the waiting room. Updated her on the conversation with Verenice and where we are at with placement. She says her dad is going home today with [facility]. She says they may go visit [facility] and [facility] this w/e to see if they have a preference. She understands Verenice will be here through the w/e and both facilities will assess Verenice on Monday. Answered her questions. Will follow.
--- NOTE | 2016-06-03 17:03 | NUR ---
Significant Event:PT IS AAOX3. CAN BE FORGETFUL.PUPILS ARE EQUAL AND REACTIVE. DOES HAVE CHRONIC NUMBNESS AND TINGLING TO LEFT HAND AND FEET. CLEAR LUNG SOUNDS ACTIVE. 1 GB WALKER. DC HEPARIN GTT STARTED LOVENOX. NIHSS 0 Follow up:MONITOR LOC
--- NOTE | 2016-06-04 07:35 | NUR ---
Significant Event: Patient is alert and oriented x3. PERRLA- 3mm and brisk. Left and feet bilat chronic N/T. Left arm tremor. NIHSS-0. Keep SBP less than 180- catapres PRN. Room air. Diabetic- ADA diet-Accu checks ACHS NO STRAWS. Last BM 06/01. Up with 1A GB and walker. Left chest port accessed, nothing running. Takes large pills one at time with water. Bilat hearing aides. Follow up: GIRP or skilled when ready.
--- NOTE | 2016-06-04 19:07 | NUR ---
Significant Event: Patient's v/s stable. She is alert and orientated. Patient's stroke scale is 0. Patient is on room air, lungs are clear. Sinus rhythm with 1 degree AV block. Patient has accu checks ACHS. Patient has left chest port saline locked. Up with 1 assist, walker, gait belt. Patient on ADA diet. Denies pain. Follow up: SNF at time of discharge. Family is looking into options.
[2016-06-05 04:09] LABS: INR - (THERAPEUTIC) 1.1 (0.9-1.1); PROTIME 12.1 SECONDS (9.6-11.1)
--- NOTE | 2016-06-05 05:34 | NUR ---
Significant Event: Patient is alert and oriented x3. Follows commands. Denies pain. Denies KHAN. N/T to left hand and feet bilat- chronic. NIHSS-0. SR-murmur. Room air. Diabetic diet-accu checks ACHS. NO STRAWS. 1A GB and walker. Takes pill whole with water one to two at a time now. Left chest port-accessed. Coumadin started. Follow up: Accu checks. Monitor.
--- NOTE | 2016-06-05 13:27 | NUR ---
A - PT SCREENED D/T LOS. HT: 60" WT: 149# LABS: ACCUCHECK WNL-REAS MEDS: KCL, SSI, PROTONIX DIET: DIABETIC. INTAKE: MOSTLY 50-100% NEEDS: 2964-6818 KCAL (20-25 KCAL/KG), 67-80 G PRO (1-1.2 G/KG), 2010 ML FLUID (30 ML/KG) D - NO NUTRITION RELATED DIAGNOSIS IDENTIFIED AT THIS TIME. I - GOAL FOR INTAKE TO REMAIN 50-100% FOR DURATION OF STAY. M/E - WILL ASSIST NEEDED.
--- NOTE | 2016-06-05 20:07 | NUR ---
Significant Event: Alert and oriented. Room air. SBP 140's, 150's and 160's. HR 60's & 70's. Stroke scale is a 0. Port to left chest, flushes well with good blood return. ACHS accu checks 83, 149, 106. No correction needed. Up with 1 assist gait belt and walker. Pleasant and cooperative with cares. Follow up:
--- NOTE | 2016-06-06 04:36 | NUR ---
Significant Event: PATIENT IS ALERT AND ORIENTED X3. FOLLOWS COMMANDS. DENIES PAIN. DENIES KHAN. N/T TO LEFT HAND AND FEET BILAT-CHRONIC. SR-MURMUR. ROOM AIR-C/D. DIABETIC-ADA DIET-ACCU CHECKS ACHS. TAKES PILLS WHOLE WITH WATER- NO STRAWS. L) CHEST PORT- SL'D. 1A WITH GBA AND WALKER. ON COUMADIN. Follow up: MONITOR BLOOD GLUCOSE. GIRP OR SKILLED WITHIN THE NEXT COUPLE DAYS.
[2016-06-06 04:53] LABS: INR - (THERAPEUTIC) 1.1 (0.9-1.1); PROTIME 11.2 SECONDS (9.6-11.1)
--- NOTE | 2016-06-06 13:32 | NUR ---
Significant Event:PT IS AAOX3. NO NEW N/T. AT 1135 TODAY. PATIENT WAS HAVING TROUBLE FINDING HER WORDS AND BECAME APHASIC. NIHSS [address] SCAN DONE. REASSESSED ONE HOUR LATER AND PATIENT SPEECH HAD RETURNED AND NOW IS ABLE TO COMMUNICATE. STATED THAT SHE COULD SEE THE WORDS IN HER HEAD BUT JUST COULD NOT GET THEM TO COME OUT. ACTIVE BS. ON RA. CLEAR AND DIMINISHED LUNG SOUNDS. HEALS FLOATING DUE TO SKIN BREAKDOWN. LEFT CHEST PORT. UP 1A WALKER GB. SENIOR LIVING EVALUATED TODAY. Follow up:MONITOR LOC, NIHSS
--- NOTE | 2016-06-06 14:50 | NUR ---
Nilsa today talked to Em at [facility] and she will come assess patient at 1100 today. Talked with patient and daughter around 1100. Patient is having difficulty at this time with word finding and conversation. Patient's nurse is aware and folllowing up on this. Daughter says they visited [facility] and [facility] and prefer [facility] of those 2. She says they have talked to staff at [facility] and they came and assessed her this a.m. She says she believes they have talked Dr. Plasencia into [facility]. She says at [facility] patient and Bill can be together and they think that would be best. She says [facility] was going to review the information and get back to her today. Em came to assess while there and updated her. She says to let he know if something changes. Did talked with Deborah from [facility] and updated her. Talked to daughter, patient and S.O. Bill in the afternoon. Patient is able to converse at this time and speech and word finding much improved from this a.m. Daughter says [facility] called and the time they were meeting to review the information was changed and she has not heard a decision from them. She will let me know what she finds out from [facility]. Told her if I have not heard from her in the a.m. I will contact [facility] and she says that is fine. Will follow.
--- NOTE | 2016-06-07 04:38 | NUR ---
Significant Event: A&Ox3. NIHSS 1. No problems with speech during the night. Has chronic N&T to hands and feet. On tele SR. VSS. RA lungs clear. Last BM 06/05. Diabetic diet. No straws. Redness to groin encourage pt to shower today. Scab on back of head. Small area to R) heal. Generalized abrasions and bruising. L) chest port accessed flushes with with great blood return SL. Accuchecks AC&HS. Takes meds 2 at a time with water. Up 1 assist GBW. Follow up: MRI this am.
[2016-06-07 05:04] LABS: INR - (THERAPEUTIC) 1.1 (0.9-1.1); PROTIME 11.9 SECONDS (9.6-11.1)
[2016-06-07 06:15] LABS: ALBUMIN 3.4 gm/dL (3.5-5.0); ANION GAP 14.1 (10.0-19.0); CALCIUM 8.6 mg/dL (8.5-10.5); CREATININE 1.1 mg/dL (0.5-1.1); PHOSPHORUS 3.9 mg/dL (2.5-4.9); POTASSIUM 4.1 mMol/L (3.7-5.1)
--- NOTE | 2016-06-07 11:30 | NUR ---
Spoke with patient's daughter and [facility] does not have a room available. Talked with Dr. Plasencia and with patient's gait changes since yesterday she says patient needs SNF at this time and not [facility]. Talked with daughter about options for SNF. She is still interested in [facility] but says she feels that she needs to go visit [facility] and [facility] also to be sure about her decision. Called [facility] and [facility] and both have female beds. Daughter will go visit them today and let me know here decision. Called and updated Em at [facility]. Will follow.
--- NOTE | 2016-06-07 15:07 | NUR ---
Significant Event: vss. alert and oriented but confused on year at times. has had one bout of expressive aphasia this shift. up to bathroom multiple times this shift. one assist gaitbelt and walker. has left side neglect when up ambulating. blood sugars have been in 90s today. Follow up: monitor
[2016-06-08 03:46] LABS: INR - (THERAPEUTIC) 1.2 (0.9-1.1)
--- NOTE | 2016-06-08 04:34 | NUR ---
Significant Event: A&O to place and person, oriented to time at times. Pt has problems with word finding at times. Has some L) sided neglect noted when walking. NIHSS 4. Up 1A GBW. Chronic N&T to feet and hands. VSS. To hold BP meds if SBP <140. RA lungs clear. Last BM 06/07. Diabetic diet. No straws. L) chest port accessed flushes will with great blood return. Accuchecks AC&HS. Follow up: Placement at Assisted Facility. EEG today.
[2016-06-08 10:28] LABS: CREATININE 1.1 mg/dL (0.5-1.1)
--- NOTE | 2016-06-08 15:36 | NUR ---
Spoke with patient, her S.O. and her sister and her . They think Allegra selected [facility] but they are not sure. Spoke with patient's daughter, Allegra and she says after visiting facilities she has decided on [facility]. She would like to request patient have a bed by the window if possible and to be place on the private room waiting list at [facility]. She says Dr. Plasencia told her patient will probably transfer tomorrow. Called and updated Em and gave her the daughter's requests. Em says they would like an update sent and they will let me know if able to accept patient. Information faxed. Await decision from [facility]. Will follow.
--- NOTE | 2016-06-08 16:04 | NUR ---
Significant Event: Patient is oriented to person and place. Confused on year. Follows commands. Chronic N/T to left hand and bilateral feet. PERRLA. NIHSS- 4. Pulse palpable throughout. Lungs are diminished in the bases on RA. VSS. SBP 131-156. Accuchecks BID. Groin is red- moisture barrier applied. Right foot is bruised. Scab to the back of her head. Abrasions to left ma and abdomen. Blisters to bilateral helps. Pleasant and cooperative with care. Follow up: CT completed today. Looking for SNF
--- NOTE | 2016-06-08 16:40 | NUR ---
Call from Em at [facility] and they can accept patient tomorrow. Will call in the a.m. and set up time once Dr. Plasencia has rounded and decided if patient ready tomorrow. Will follow.
--- NOTE | 2016-06-09 02:09 | NUR ---
Significant Event: Patient alert to self, place, . Perrla. Moves all extremities spontaneously and to command. LLE weaker than right. L side facial droop. Chronic n/t to bilateral feet and left hand. Left peripheral vision impaired. NIHSS=5 this shift. Difficulty with word finding at times. Has been impulsive at times this shift. HTN at times. Lungs clear and dim on room air. No bm this shift. Transfers 1 assist GB/walker, unsteady. Port to left chest, saline locked. Denies pain. Follow up: Turn q 2. Alarms at all times.
[2016-06-09 03:47] LABS: INR - (THERAPEUTIC) 1.7 (0.9-1.1); PROTIME 18.9 SECONDS (9.6-11.1)
[2016-06-09] MEDS ORDERED: COLACE100 MG PO (11:19)
[2016-06-09] MEDS ORDERED: LOVENOX 8080 MG/0.8 SUB-Q (11:20)
[2016-06-09 11:22] LABS: BASOPHIL % 0.3 %; EOSINOPHIL # 0.1 K/uL (0.0-0.5); EOSINOPHIL % 0.9 %; HEMATOCRIT 33.5 % (30.0-46.0); HEMOGLOBIN 10.9 g/dL (10.0-15.0); IMMATURE GRANULOCYTE % 0.4 %; LYMPHOCYTE # 0.9 K/uL (0.8-4.0); LYMPHOCYTE % 9.5 %; MCH 30.8 pg (27.0-34.0); MCHC 32.5 gm/dL (32.0-36.5); MCV 94.6 fl (83.0-98.0); MONOCYTE # 0.9 K/uL (0.0-1.0); MPV 9.8 fl (9.4-12.4); NEUTROPHIL # (ANC) 7.8 K/uL (1.8-7.8); NEUTROPHIL % 79.9 %; NRBC % 0 /100WBC (0-0.00); PLATELET COUNT 280 K/uL (150-450); RBC 3.54 M/uL (3.00-5.00); RDW-CV 15.4 % (11.9-14.6); WBC 9.8 K/uL (4.0-11.0)
[2016-06-09] MEDS ORDERED: PROTONIX40 MG PO (11:22)
[2016-06-09] MEDS ORDERED: DIOVAN160 MG PO (11:24)
[2016-06-09 11:25] LABS: BILIRUBIN URINE NEGATIVE (NEGATIVE); BLOOD URINE NEGATIVE /UL (NEGATIVE); COLOR URINE YELLOW (YELLOW); GLUCOSE URINE NEGATIVE (NEGATIVE); KETONE URINE NEGATIVE (NEGATIVE); LEUKOCYTES URINE 25 /UL (NEGATIVE); NITRITE URINE NEGATIVE (NEGATIVE); PROTEIN URINE NEGATIVE (NEGATIVE); TURBIDITY URINE CLEAR (CLEAR); UROBILINOGEN URINE NORMAL (NORMAL)
[2016-06-09] MEDS ORDERED: COUMADIN **IA2.5 MG PO (11:25)
[2016-06-09] MEDS ORDERED: DULERA 200 MCG/51 EA INH (11:26)
[2016-06-09 11:32] LABS: BACTERIA URINE NEGATIVE (NEGATIVE); EPITHELIAL URINE NEGATIVE #/HPF (NEGATIVE); RBC URINE NEGATIVE #/HPF (NEGATIVE)
[2016-06-09] MEDS ORDERED: TYLENOL650 MG R (11:32)
[2016-06-09] MEDS ORDERED: CATAPRES0.1 MG PO (11:33)
[2016-06-09] MEDS ORDERED: MILK OF MA400 MG/5 M PO (11:34)
--- NOTE | 2016-06-09 11:40 | NUR ---
Notified this a.m. patient can transfer to [facility] today. Talked with Em at [facility] and they will pick patient up at 1230. Orders faxed to [facility]. Spoke with patient's daughter, S.O. and several other family members regarding transfer time. They are in agreement with transfer. Her nurse will call nurse to nurse report. Patient to transfer to [facility] today at 1230 via [facility] skilled care.
[2016-06-09 11:43] LABS: ALBUMIN 3.3 gm/dL (3.5-5.0); ANION GAP 13.5 (10.0-19.0); CALCIUM 8.3 mg/dL (8.5-10.5); CREATININE 1.2 mg/dL (0.5-1.1); POTASSIUM 4.5 mMol/L (3.7-5.1); TOTAL PROTEIN 6.7 g/dL (6.0-8.4)
[2016-06-09 11:44] LABS: TOTAL BILIRUBIN 0.3 mg/dL (0.0-1.5)
--- NOTE | 2016-06-09 12:02 | NUR ---
PATIENT IS 85 YEAR OLD FEMALE WHO CAME IN FOR STROKE. 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 WAS RECENTLY HERE FOR INFLUENZA AND PNEUMONIA. PT WAS HAVING INCREASE CONFUSION AND FALLING OFTEN. HAS MULTIPLE AREAS OF STROKE. PT IS ALERT TO PERSON AND PLACE. DOES HAVE EPISODE OF CONFUSION WITH WORD FINDING NOTED. MOVES ALL EXTREMITES. NIHSS 7. UP WITH GB WALKER. 1-2 ASSIST CLEAR AND DIMINISHED LUNG SOUNDS. ON RA. ACTIVE BS. BM TODAY. PORT TO LEFT CHEST. HAD SCABBED AREA TO BACK OF HEAD. ALSO HAS PRESSURE SPOT TO RIGHT HEEL. REDNESS IN GROIN HAS IMPROVED. TAKES MEDS WHOLE WITH NO ISSUE. DOES NEED HELP SETTING UP MEAL TRAY. PLAN TO DISCHARGE TO [facility].
== END 2016-06-09 13:15 | DRG 65 ==
LOC: GRAD 10:50 → GNTU 14:46
PROVIDERS: Internal Medicine Hematology & Oncology; ADMIT Family Medicine
DX: I63.10 Cerebral infarction due to embolism of unspecified precerebral artery (principal); C79.31 Secondary malignant neoplasm of brain; J44.9 Chronic obstructive pulmonary disease, unspecified; E11.22 Type 2 diabetes mellitus with diabetic chronic kidney disease; C34.31 Malignant neoplasm of lower lobe, right bronchus or lung; E11.40 Type 2 diabetes mellitus with diabetic neuropathy, unspecified; E78.5 Hyperlipidemia, unspecified; Z87.891 Personal history of nicotine dependence; Z95.1 Presence of aortocoronary bypass graft; I25.10 Atherosclerotic heart disease of native coronary artery without angina pectoris; I12.9 Hypertensive chronic kidney disease with stage 1 through stage 4 chronic kidney disease, or unspecified chronic kidney disease; N18.9 Chronic kidney disease, unspecified; M10.9 Gout, unspecified; I73.9 Peripheral vascular disease, unspecified; I35.0 Nonrheumatic aortic (valve) stenosis; I34.2 Nonrheumatic mitral (valve) stenosis; Z92.21 Personal history of antineoplastic chemotherapy; Z92.3 Personal history of irradiation; R29.6 Repeated falls; F32.9 Major depressive disorder, single episode, unspecified
CPT/HCPCS: A9270; A9577; J1642; J1644; J1650; J7030

== ENCOUNTER → 2016-06-10 | Outpatient (CLI) | payer MEDICARE, BC ==
[~2016-06-10] MED LIST changes: +COLACE100 MG PO; +COUMADIN **IA2.5 MG PO; +DIOVAN160 MG PO; +DULERA 200 MCG/51 EA INH; +FLONASE 50 MCG/16 GM NOSE; +LOVENOX 8080 MG/0.8 SUB-Q; +MILK OF MA400 MG/5 M PO; +PROTONIX40 MG PO; +TYLENOL650 MG R; +ZOFRAN4 MG PO
== END | disposition disaster alternative care site (69) ==
LOC: GRAD 13:30
DX: R46.89 Other symptoms and signs involving appearance and behavior (principal)

== ENCOUNTER → 2016-06-15 | Outpatient (CLI) | payer OTHER, MEDICARE, BC ==
[2016-06-15 11:52] LABS: INR - (THERAPEUTIC) 2.3 (0.9-1.1); PROTIME 26.1 SECONDS (9.6-11.1)
== END | disposition disaster alternative care site (69) ==
LOC: LJOHN2 11:41
PROVIDERS: Family Medicine
DX: I63.9 Cerebral infarction, unspecified (principal)

== ENCOUNTER → 2016-06-29 | Outpatient (CLI) | payer OTHER, MEDICARE, BC ==
[2016-06-29 08:33] LABS: INR - (THERAPEUTIC) 2.2 (0.9-1.1); PROTIME 24.5 SECONDS (9.6-11.1)
== END | disposition disaster alternative care site (69) ==
PROVIDERS: Family Medicine
DX: I63.9 Cerebral infarction, unspecified (principal); I10 Essential (primary) hypertension; Z95.5 Presence of coronary angioplasty implant and graft

== ENCOUNTER 2016-07-31 22:29 | Emergency (ER) | payer MEDICARE, BC ==
--- NOTE | ~2016-07-31 | ER ---
PATIENT'S NAME: GAMA ROLLINS [facility] AGE: 86 Y [address] ROOM: [place] [address] LOCATION: [facility] ADMIT DATE: 07/31/2016 ER/Outpatient Report DISCHARGE DATE: 07/31/2016 FAMILY PHYSICIAN: Yudith Plasencia MD ATTENDING PHYSICIAN: Ekta Marshall HISTORY OF PRESENT ILLNESS: An 86-year-old female, who presents today with chief complaint of episode of slurred speech and some confusion approximately 5.5 hours ago. Her significant other had noticed it. It has since resolved and the patient says she feels fine. She knows that she had some slurred speech at the time, but otherwise feels fine now. En route, EMS placed an IV. Her blood glucose checked was 119 there. They had called the patient's daughter who asked that they call EMS to evaluate her and see if they need to be brought in and then EMS suggested that she come to the hospital. The patient herself denied any headache, numbness, tingling, nausea, vomiting, chest pain, abdominal pain, difficulty walking, difficulty swallowing, or difficulty talking. She says that she has a history of a CVA back in June of this year with very mild residual left-sided weakness. She uses a walker and she takes Coumadin for it. PAST MEDICAL HISTORY: Includes multiple embolic strokes, confusion and weakness secondary to these embolic strokes, metastatic lung cancer, hypertension, ubg-qfixwda-lwtxfgeyu diabetes, hyperlipidemia, coronary artery disease, COPD, aortic stenosis, mitral stenosis, and neuropathy. PAST SURGICAL HISTORY: Includes carpal tunnel, colonoscopy, CABG, D and C, tonsillectomy, trigger finger release, and port placement. SOCIAL HISTORY: Ex-smoker, but quit in 1983. Denies any drugs or alcohol use. MEDS: Please see med list. ALLERGIES: TO PERCOCET, LEVAQUIN, AND SULFA. ROS: Reviewed by me and negative with the exception of those discussed in the HPI. PHYSICAL EXAMINATION: VITAL SIGNS: The patient is 68.7 kilos, blood pressure 181/85, heart rate 80, PATIENT'S NAME: GAMA ROLLINS [facility] AGE: 86 Y [address] ROOM: [place] [address] LOCATION: [facility] ADMIT DATE: 07/31/2016 ER/Outpatient Report DISCHARGE DATE: 07/31/2016 FAMILY PHYSICIAN: Yudith Plasencia MD ATTENDING PHYSICIAN: Ekta Marshall respiratory rate 18, temperature is 97.9, SpO2 is 98%. GENERAL: The patient is well appearing. She is alert and oriented x4. Her GCS is 15. HEENT: Her pupils are equal and reactive to light. She is able to move both extremities. PSYCH: She has a normal affect. She is cooperative and answering questions appropriately. HEART: Heart rate is irregular, looks like AFib on the monitor, but she has normal breath sounds. No increased work of breathing. ABDOMEN: Obese, but soft, nontender, and nondistended. SKIN: Warm, dry, and intact. NEUROLOGICAL: Pupils are equal and reactive to light. She tracks appropriately. She has no pronator drift. Strength bilateral upper extremities are 5/5. Lower extremities are 5/5 intact. Grasp strength bilateral upper and lower extremities. She is able to do lykhdr-tvzv-jqotks testing. Cranial nerves 2 through 12 are intact as well. EMERGENCY ROOM COURSE: We checked some lab work and did a CT head on her as well and we also checked some coags. So, her CT head shows no acute hemorrhage or definite acute infarct. She does have diffuse atrophy with moderate white matter changes and encephalomalacia in the left occipital lobe, but no acute hemorrhage or acute infarct noted. Her CBC shows a white count of 7.5, H and H 11.7 and 35.7, and platelets are 220. No bandemia. Her PTT is 28, PT is 17.3, INR is 1.64. Renal panel: Sodium is 140, potassium 4.2, chloride 104, CO2 29, anion gap 11.2, BUN 12 creatinine 1.1. GFR is 47, troponin is less than 0.04. I went back to re-evaluate the patient. She is back at neuro baseline mental status at this time. Her significant other is at bedside and he agrees that she is at baseline mental status. She knows who she is, where she is. She knows her dates, she knows that today is her birthday as well. So, I think she can go home. I did discuss this with Dr. Taylor covering for Dr. Plasencia. The only concern is that her INR is lower than what it should, it be is 1.64 when it should be between 2 to 3 to be working. So, I discussed this with Dr. Taylor. The patient currently takes alternating 4-5 mg doses 4 once a day, 5 once a day, and then 4, 5, 4, 5. Dr. Taylor recommended updating the dose up to 5 mg daily and have repeat INR check in 3 days. The patient understands this and understands the reasons to come back to get to the ER sooner. IMPRESSION: Transient ischemic attack, subtherapeutic INR. PATIENT'S NAME: GAMA ROLLINS [facility] AGE: 86 Y [address] ROOM: [place] [address] LOCATION: [facility] ADMIT DATE: 07/31/2016 ER/Outpatient Report DISCHARGE DATE: 07/31/2016 FAMILY PHYSICIAN: Yudith Plasencia MD ATTENDING PHYSICIAN: Ekta Marshall MD CAW/ernie /[id number] d: 08/01/16 0441 t: 08/04/16 1818, OUTPATIENT REPORT
[~2016-07-31 22:29] MED LIST changes: -FLONASE 50 MCG/16 GM NOSE; -ZOFRAN4 MG PO
[2016-07-31 22:56] LABS: BASOPHIL % 0.3 %; EOSINOPHIL # 0.2 K/uL (0.0-0.5); EOSINOPHIL % 2.7 %; HEMATOCRIT 35.7 % (30.0-46.0); HEMOGLOBIN 11.7 g/dL (10.0-15.0); IMMATURE GRANULOCYTE % 0.1 %; LYMPHOCYTE # 0.9 K/uL (0.8-4.0); LYMPHOCYTE % 12.1 %; MCH 29.8 pg (27.0-34.0); MCHC 32.8 gm/dL (32.0-36.5); MCV 90.8 fl (83.0-98.0); MONOCYTE % 13.1 %; MPV 9.8 fl (9.4-12.4); NEUTROPHIL # (ANC) 5.4 K/uL (1.8-7.8); NEUTROPHIL % 71.7 %; NRBC % 0 /100WBC (0-0.00); PLATELET COUNT 220 K/uL (150-450); RBC 3.93 M/uL (3.00-5.00); RDW-CV 13.2 % (11.9-14.6); WBC 7.5 K/uL (4.0-11.0)
[2016-07-31 23:07] LABS: INR - (THERAPEUTIC) 1.64 (0.92-1.07); PROTIME 17.3 SECONDS (9.8-11.4); PTT 28 SECONDS (25-32)
[2016-07-31 23:12] LABS: ALBUMIN 3.5 gm/dL (3.5-5.0); ANION GAP 11.2 (10.0-19.0); BLOOD UREA NITROGEN 12 mg/dL (6-24); CALCIUM 8.6 mg/dL (8.5-10.5); CHLORIDE 104 mMol/L (96-110); CO2 29 mMol/L (22-32); CREATININE 1.1 mg/dL (0.5-1.1); ESTIMATED GFR (MDRD EQUATION) 47; PHOSPHORUS 3.5 mg/dL (2.5-4.9); POTASSIUM 4.2 mMol/L (3.7-5.1); SODIUM 140 mMol/L (135-145)
== END 2016-07-31 23:59 | disposition disaster alternative care site (69) ==
LOC: GMED 22:29
PROVIDERS: Emergency Medicine
DX: G45.9 Transient cerebral ischemic attack, unspecified (principal); I10 Essential (primary) hypertension; E78.5 Hyperlipidemia, unspecified; E11.9 Type 2 diabetes mellitus without complications; J44.9 Chronic obstructive pulmonary disease, unspecified; Z90.89 Acquired absence of other organs; Z88.2 Allergy status to sulfonamides; Z88.8 Allergy status to other drugs, medicaments and biological substances; Z79.899 Other long term (current) drug therapy; Z79.01 Long term (current) use of anticoagulants

== ENCOUNTER → 2016-07-31 | Outpatient (CLI) | payer MEDICARE, BC | END | disposition disaster alternative care site (69) | LOC: GAMB 22:04 | DX: G45.9 Transient cerebral ischemic attack, unspecified (principal); I48.91 Unspecified atrial fibrillation; I10 Essential (primary) hypertension; R47.81 Slurred speech; Z79.01 Long term (current) use of anticoagulants; Z79.899 Other long term (current) drug therapy; Z88.1 Allergy status to other antibiotic agents; Z88.2 Allergy status to sulfonamides | CPT/HCPCS: A0425; A0427 ==

== ENCOUNTER → 2016-09-08 | Outpatient (CLI) | payer MEDICARE, BC ==
[~2016-09-08] MED LIST changes: +FLONASE 50 MCG/16 GM NOSE; +ZOFRAN4 MG PO
== END | disposition disaster alternative care site (69) ==
LOC: GRAD 08:27
DX: C34.31 Malignant neoplasm of lower lobe, right bronchus or lung (principal); C79.89 Secondary malignant neoplasm of other specified sites; N85.8 Other specified noninflammatory disorders of uterus; J10.08 Influenza due to other identified influenza virus with other specified pneumonia; I63.49 Cerebral infarction due to embolism of other cerebral artery

== ENCOUNTER 2016-09-13 11:11 | Inpatient (IN) | payer MEDICARE, BC ==
[~2016-09-13] VITALS: Ht 152.4 cm; Wt 65.4 kg
--- NOTE | ~2016-09-13 | HP ---
PATIENT'S NAME: GAMA ROLLINS [facility] AGE: 86 Y [address] ROOM: [place] [address] LOCATION: [facility] ADMIT DATE: 09/13/2016 History & Physical DISCHARGE DATE: FAMILY PHYSICIAN: Yudith Plasencia MD ATTENDING PHYSICIAN: Markus Cheatham DATE OF SERVICE: ADMISSION DIAGNOSES: 1. Headache. 2. Hypoxia. 3. Pulmonary embolism. 4. Metastatic lung cancer to the brain. HISTORY OF PRESENT ILLNESS: This is an 86-year-old white female, who normally sees Dr. Yudith Plasencia. She has diagnosis of metastatic lung cancer with metastatic disease to the neck as well as the head and also has a progressive right-sided lower lobe consolidating mass. She was seen by Dr. Fragoso yesterday. Getting out of the car, she did fall and bump her head. Her significant other stated that overnight, she was fractionally a little bit confused and so he brought her to the emergency room where her mentation had cleared but was found to be hypoxic. She was found to have right-sided pulmonary embolism. Her INR is subtherapeutic at 1.5. She also has a history of embolic strokes. She is subsequently admitted for oxygen, heparin, and further treatment. PAST MEDICAL HISTORY: Significant for aortic valve stenosis, metastatic lung cancer, coronary artery disease, chronic kidney disease, COPD, history of embolic strokes, type 2 diabetes, hyperlipidemia, hypertension, peripheral vascular disease. PAST SURGICAL HISTORY: Carpal tunnel release, colonoscopy, coronary artery bypass grafting, D and C, tonsillectomy and adenoidectomy, and trigger finger release. MEDICATIONS: At the time of admission include: 1. Tylenol. 2. Advair 250/50 twice per day. 3. Amlodipine 2.5 mg daily. 4. Atenolol 50 mg daily. 5. Clonidine 0.1 mg 2 times a day as needed for blood pressure greater than 180. 6. Colace 100 mg once a day. 7. Coumadin 2 mg daily. PATIENT'S NAME: GAMA ROLLINS [facility] AGE: 86 Y [address] ROOM: [place] [address] LOCATION: [facility] ADMIT DATE: 09/13/2016 History & Physical DISCHARGE DATE: FAMILY PHYSICIAN: Yudith Plasencia MD ATTENDING PHYSICIAN: Markus Cheatham 8. Crestor 20 mg per day. 9. Diovan 160 daily. 10. Flonase nasal spray. 11. Protonix 40 mg daily. 12. Proventil inhaler 2 puffs 4 times a day as needed. 13. Spiriva 18 mcg once per day. 14. Uloric 40 mg daily. 15. Zofran p.r.n. ALLERGIES TO MEDICATIONS: Include [place], Levaquin, and sulfa. FAMILY HISTORY: Significant for Alzheimer's disease, arthritis, cancers, CHF, dementia, depression, type 2 diabetes, gout, hypertension, osteoporosis, and thyroid disorder. REVIEW OF SYSTEMS: Unobtainable secondary to the patient being without her hearing aids. PHYSICAL EXAMINATION: GENERAL: She is resting at this time. She awakens briefly, but it is difficult to elicit much history. HEENT: Head is atraumatic. There is little hair. Throat is clear. NECK: Supple with some adenopathy noted on the right. LUNGS: Decreased breath sounds. Slight wheezes heard on the right. HEART: Regular with a systolic murmur. ABDOMEN: Soft, nontender, nondistended. LABORATORY STUDIES: Reveal an INR of 1.5. White count 9.5, hemoglobin 11.4. Chemistries to be essentially normal other than glucose of 186. ProBNP slightly is elevated at 3323 as well as D-dimer elevated significantly. IMPRESSION: 1. Metastatic lung cancer with brain metastasis, local and distant metastasis to the right lung and right-sided lymph nodes. 2. New pulmonary embolism. 3. History of embolic stroke. 4. Type 2 diabetes. 5. Hyperlipidemia. 6. Hypertension. 7. Chronic kidney disease. 8. Heart failure. PATIENT'S NAME: GAMA ROLLINS [facility] AGE: 86 Y [address] ROOM: [place] [address] LOCATION: [facility] ADMIT DATE: 09/13/2016 History & Physical DISCHARGE DATE: FAMILY PHYSICIAN: Yudith Plasencia MD ATTENDING PHYSICIAN: Markus Cheatham PLAN: This patient did receive some hydration prior to her CT scan to help protect her kidneys on the recommendations from Dr. Fragoso. We will at this point saline lock her IV. She has been started on heparin. We will give her an extra dose of Coumadin tonight and follow. Dr. Plasencia to assume care in the morning. MD DEL KO/barakl /[id number] D: [id number] T: [id number] HISTORY & PHYSICAL
--- NOTE | ~2016-09-13 | CON ---
PATIENT'S NAME: VERENICE ROLLINS [facility] AGE: 86 Y [address] ROOM: [address] [place] [id number] LOCATION: [facility] ADMIT DATE: 09/13/2016 Consultation DISCHARGE DATE: 09/18/2016 FAMILY PHYSICIAN: Yudith Plasencia MD ATTENDING PHYSICIAN: Markus Cheatham DATE OF CONSULTATION: 09/15/2016 REFERRING PHYSICIAN: Yudith Plasencia MD PALLIATIVE MEDICINE CONSULT LOCATION: [facility] CHIEF COMPLAINT: Palliative care referral for ongoing support and continue goals of care conversation. HISTORY OF PRESENT ILLNESS: The patient is an 86-year-old female with a history of metastatic lung cancer, who has been seeing Dr. Plasencia, who recently on a CT scan on September 08, 2016, was found to have markedly advancing neoplastic disease in the chest. On the day of admission, the patient went to the clinic for followup and fell in the parking lot. The patient was admitted with hypoxia and new diagnosis of pulmonary embolism. The patient also has a history of in June hospitalization due to embolic stroke. Palliative Care has been following intermittently at home following this hospitalization. She also has a history of multiple recent falls. She recently approximately 1 week ago moved into the [facility] with her significant other, who also has metastatic cancer. Given all this, Palliative Care has been reconsulted to continue to follow the patient during this hospitalization. PAST SURGICAL HISTORY: 1. Bilateral cataracts. 2. Tonsillectomy. 3. Two-Vessel CABG. 4. Bilateral CEA. 5. Carpal tunnel release. 6. Trigger finger surgery. PAST MEDICAL HISTORY: 1. Stage IV lung cancer, metastasis to the brain, status post whole brain radiation. 2. Aortic stenosis. 3. Coronary artery disease. PATIENT'S NAME: VERENICE ROLLINS [facility] AGE: 86 Y [address] ROOM: [address] [place] [id number] LOCATION: [facility] ADMIT DATE: 09/13/2016 Consultation DISCHARGE DATE: 09/18/2016 FAMILY PHYSICIAN: Yudith Plasencia MD ATTENDING PHYSICIAN: Markus Cheatham 4. Chronic kidney disease. 5. COPD. 6. Diabetes mellitus type 2. 7. History of embolic strokes, on Coumadin. 8. Diverticulosis. 9. Hyperlipidemia. 10. Hypertension. 11. Peripheral vascular disease. MEDICATIONS: Please see current MAR. ALLERGIES: SULFA, PERCOCET, AND LEVAQUIN. SOCIAL HISTORY: The patient is not but lives with her long-term significant other. They recently moved to [facility] approximately 1 week ago. Prior to this, they were living in their own home. Her significant other has a history of metastatic cancer as well and recently underwent a procedure. She has a history of smoking and quit many years ago. FAMILY HISTORY: Mother had diabetes, CHF, and hypertension, at the age of 77. Her father had a history of a stroke and at age of 86. She has 2 brothers with hypertension. A sister from breast cancer, and a sister of Parkinson's. REVIEW OF SYSTEMS: GENERAL: Positive for weight loss. Reports her appetite is fair. No recent fever, chills, or night sweats. Positive for fatigue. HEENT: No changes in vision or hearing. No headaches. Continues to have an open sore to the back of her head. No sinus congestion. RESPIRATORY: Complains of mild shortness of breath at rest, increases with activity. No cough. No wheezes. CARDIOVASCULAR: No chest pain, pressure, or palpitations. Denies orthopnea. No peripheral edema. GASTROINTESTINAL: No nausea, vomiting, diarrhea, or constipation. Denies difficulties chewing or swallowing. GENITOURINARY: No dysuria, urinary frequency, or urgency. MUSCULOSKELETAL: Denies any joint swelling or joint pain. No back pain. Does have a history of multiple falls and uses a walker to ambulate and does occasionally wear a helmet as well. NEUROLOGICAL: Positive for peripheral neuropathy. No seizures. Denies dizziness. PATIENT'S NAME: VERENICE ROLLINS [facility] AGE: 86 Y [address] ROOM: [address] [place] [address] [facility] ADMIT DATE: 09/13/2016 Consultation DISCHARGE DATE: 09/18/2016 FAMILY PHYSICIAN: Yudith Plasencia MD ATTENDING PHYSICIAN: Markus Cheatham INTEGUMENTARY: Does have an open area to the back of her head from her fall. Prior to this had been a large scabbed area. PSYCHIATRIC: Denies feeling overtly depressed or anxious. Denies hallucinations. Does have some forgetfulness and work-finding issues. These are not new. PHYSICAL EXAMINATION: VITAL SIGNS: Blood pressure 111/56, heart rate 93, temperature 97.4, respirations 24, O2 sats 96% on 2 L. GENERAL: Reveals an alert and oriented elderly white female, who does not appear to be in any acute distress, sitting in the recliner. She is noted to be somewhat forgetful, if not, slightly confused to time during the conversation. She is hard of hearing. HEENT: Normocephalic. Does have an open area to the back of her head with Steri-Strips. She has alopecia. Pupils are equal and reactive to light. Sclerae anicteric. Conjunctivae pink. Tongue and mucous membranes are moist and pink. Dentition is adequate. CARDIOVASCULAR: Heart tones are regular rate and rhythm. She does have a murmur. RESPIRATORY: Respirations are regular, nonlabored at rest. Lung sounds are clear and diminished bilaterally. GASTROINTESTINAL: Abdomen is soft, nontender. Bowel sounds are present. MUSCULOSKELETAL: No significant joint deformity. Peripheral pulses are 1+ bilaterally. No clubbing, cyanosis, or edema. SKIN: Warm and dry. No other unusual lesions or rashes. NEUROLOGICAL: Grossly intact. Mental status is unremarkable. IMPRESSION AND PLAN: 1. Shortness of breath. Her O2 has been weaned off today. We will continue to monitor and hopefully this will improve. 2. Recurrent falls. 3. Fatigue. 4. Code status. The patient is a DNR/DNI. She does have power of commercial attorney and living will paper work on her chart. The patient and family are known to Palliative Care Services from prior admission. I visited with the patient's daughter, Allegra, who is working on getting the patient and her significant other settled into [place]. There is some concern from Home Health Care in regard to needing more help at the independent living facility. This was discussed with Allegra. Allegra does talk about how she wishes her mom would go on hospice for the additional support. Though she does understand that Verenice wishes to pursue further chemo treatment, and she is okay with that. Allegra does plan to visit more about hospice with her mom over the next few days or a week. At this point, Allegra just wants her mom to have a good quality of life for whatever time is left with her significant other. Did also visit with Verenice a little bit, and Verenice PATIENT'S NAME: VERENICE ROLLINS [facility] AGE: 86 Y [address] ROOM: [id number] [place], [place] [address] [facility] ADMIT DATE: 09/13/2016 Consultation DISCHARGE DATE: 09/18/2016 FAMILY PHYSICIAN: Yudith Plasencia MD ATTENDING PHYSICIAN: Markus Cheatham talks about how chemo is her only option at this point, and she is also concerned about her significant other Bill's cancer treatment as well. Provided an emotional support and active listening. We will plan to continue following this patient while here in the hospital for additional support and symptoms as well as on the outpatient basis at [place] as well. Total visit was 45 minutes, greater than 50% of this time was spent providing education, counseling, and support. Thank you for allowing me to assist the patient and her family. SIERRA CUADRA, RIKA FOR DERIC LEVIN MD DLS/modl /[id number] CC: Yudith Plasencia MD d: 09/19/16 2249 t: 09/23/16 1541, CONSULTATION REPORT
--- NOTE | ~2016-09-13 | PUL ---
PATIENT'S NAME: GAMA ROLLINS [facility] AGE: 86 Y [address] ROOM: [address] [address] LOCATION: [facility] ADMIT DATE: 09/13/2016 Pulmonary DISCHARGE DATE: 09/18/2016 FAMILY PHYSICIAN: Yudith Plasencia MD ATTENDING PHYSICIAN: Markus Cheatham NAME OF PROCEDURE: Overnight Pulse Oximetry DATE OF PROCEDURE: September 17 to September 18, 2016 REASON FOR EXAM: Nocturnal hypoxemia RESULTS: The test was performed on room air. The recording time was 8 hours, 30 minutes, and 32 seconds, with a total valid sampling time of 7 hours, 56 minutes, and 12 seconds. The highest pulse was 109, lowest pulse was 78, with a mean pulse of 94. The highest SpO2 was 98%, lowest SpO2 was 69%, with a mean SpO2 of 88.2%. The patient spent 4 hours, 34 minutes, and 48 seconds with SpO2 less than 89%, representing 57.7% of the total sleep time. The desaturation event index was slightly elevated at 6.4. PHYSICIAN INTERPRETATION: The patient has evidence of significant nocturnal hypoxia and would qualify for supplemental oxygen as per Medicare criteria. However, because of the severity of her nocturnal hypoxia with an elevated desaturation event index a sleep study is recommended at this time. MD ALEJANDRO PASCAL/wilfrido /[id number] dtt: 09/23/16 1228 , DERIC LEVIN dtd: 09/22/16 0917
--- NOTE | ~2016-09-13 | ER ---
PATIENT'S NAME: GAMA ROLLINS [facility] AGE: 86 Y [address] ROOM: [place] [address] LOCATION: GPCU ADMIT DATE: 09/13/2016 ER/Outpatient Report DISCHARGE DATE: FAMILY PHYSICIAN: Yudith Plasencia MD ATTENDING PHYSICIAN: Markus Cheatham Time of Arrival: 1111 hours. Time of Evaluation: 1116 hours. IDENTIFICATION: An 86-year-old female. CHIEF COMPLAINT: Head injury. HISTORY OF PRESENT ILLNESS: The patient is an 86-year-old female, who fell yesterday while at Dr. Fragoso' office and struck the back of her head. No loss of consciousness. No headache. She had Steri-Strips applied at Dr. Fragoso' office, but last night her said she was restless and "dingy." She was not her normal self, was confused early this morning, but seems to be better at this time. The patient arrived short of breath, which she states is usual for her, but has been worse for the last 2 weeks. She uses an inhaler but not a nebulizer, and she is not normally on home O2. The patient has a history of stage IV lung cancer, who has completed chemotherapy and whole-brain radiation. Now, she has abdominal metastases and is initiating a new chemotherapy today. PAST MEDICAL HISTORY: ALLERGIES: SULFA, PERCOCET, AND LEVAQUIN. CURRENT MEDICATIONS: Were faxed from Dr. Fragoso' office and reviewed. Please refer the med recon form. MEDICAL PROBLEMS: Stage IV lung cancer with metastasis to the brain and abdomen, aortic stenosis, coronary artery disease, chronic kidney disease, COPD, diabetes mellitus type 2, CVA, diverticulosis, hyperlipidemia, hypertension, and peripheral vascular disease. PRIOR SURGERIES: Bilateral cataract surgery, tonsillectomy, 2- vessel CABG, bilateral carotid endarterectomy, left carpal tunnel release and trigger finger surgery. PATIENT'S NAME: GAMA ROLLINS [facility] AGE: 86 Y [address] ROOM: [place] [address] LOCATION: GPCU ADMIT DATE: 09/13/2016 ER/Outpatient Report DISCHARGE DATE: FAMILY PHYSICIAN: Yudith Plasencia MD ATTENDING PHYSICIAN: Markus Cheatham SOCIAL HISTORY: The patient lives here in [place]. She is retired. She is . Tobacco use, she quit in 1983. Alcohol use, denies. Drug use, denies. FAMILY HISTORY: Mother with diabetes, CHF, and hypertension, at age 77. Father with stroke, at age 86. Two brothers with hypertension. Sister secondary to breast cancer and a sister secondary to Parkinson's. REVIEW OF SYSTEMS: All systems reviewed and negative other than what is noted in the HPI. The patient denies any headache. She denies cough. No fever or chills. PHYSICAL EXAMINATION: VITAL SIGNS: Weight 64.2 kg. Blood pressure 163/70, pulse 104, respirations 21, temperature 98.2, and saturations 88% on room air. GENERAL: An 86-year-old female who appears short of breath, in no other distress. HEENT: Head: Normocephalic. She has a wig on. When I removed the wig, she does have Steri-Strips applied to lesion on her posterior scalp. No active bleeding. No surrounding erythema or drainage. Nontender. Eyes: Pupils equal and reactive to light and accommodation. Extraocular movements intact. Nose: Mucosa pink. No lesions or drainage. Mouth: No lesions. Pharynx benign. NECK: Supple. No lymphadenopathy. No nuchal rigidity. No tenderness to palpation of her cervical spine. LUNGS: Breath sounds are equal. She does have expiratory wheezes throughout and diminished air exchange. HEART: Regular rate and rhythm. No murmur, rub, or gallop. ABDOMEN: Bowel sounds present. Soft, nondistended, minimally tender to deep palpation. No rebound or guarding. SKIN: [place], warm, and dry. No lesions or rashes noted. NEURO: The patient is alert and oriented x4. Cranial nerves 2 through 12 grossly intact. Motor strength 5/5 throughout. Sensation is intact to light touch. No lower extremity edema. No calf tenderness. LABORATORY DATA: Hemoglobin 11.4, hematocrit 34.8, platelets 190, white count 9.5 with 76% segs, 5% bands. INR 1.51. ProBNP 3323, which is down from April when it was 7619. Sodium 134, potassium 4.3, chloride 101, CO2 of 25, BUN 11, creatinine 1.1, blood sugar 186. Liver enzymes normal. D-dimer elevated at 17.19. No previous D-dimer available for comparison. INR subtherapeutic at 1.51. INR was also subtherapeutic on July 31 at 1.64. The patient had a CT scan, chest, abdomen, and pelvis on September 08 without contrast showing an PATIENT'S NAME: GAMA ROLLINS [facility] AGE: 86 Y [address] ROOM: [place] [address] LOCATION: GPCU ADMIT DATE: 09/13/2016 ER/Outpatient Report DISCHARGE DATE: FAMILY PHYSICIAN: Yudith Plasencia MD ATTENDING PHYSICIAN: Markus Cheatham increased right pleural effusion, moderate to large in size; progressive right lower lobe consolidating mass; multiple new small nodules in the right upper lobe consistent with metastatic lesions; multiple new metastatic nodules in the left lung; right hilar adenopathy with a hilar mass; enlarging azygos node and pretracheal nodes; extensive adenopathy at the neck base; gallstones are incidentally noted; left pelvis cystic mass measuring 65 x 52 mm. Two-view chest x-ray done today: Areas of streaky patchy parenchymal opacity are present at the left lung base, right infrahilar region, right lung base, and right upper lung, worse at the right lung base since the prior study, remainder of the areas are grossly normal. CT scan, PE protocol: Positive study for pulmonary emboli involving subsegmental right lower lobe pulmonary arteries; moderate sized right pleural fluid collection, increased in volume since the prior study; stable areas of consolidation of the right upper, mid, and lower lungs as well as left lung base; stable bilateral pulmonary nodules per Dr. Werner, radiologist. IMPRESSION AND PLAN: 1. Pulmonary embolus. The patient is on Coumadin but subtherapeutic. The patient will be admitted for heparin per protocol by Dr. Cheatham for Dr. Plasencia, her primary care physician. 2. Stage IV lung cancer with brain metastasis, status post radiation therapy. The patient is to initiate a new chemotherapy today. Dr. Fragoso will follow. 3. Left adnexal mass. 4. Hypoxia. The patient is placed on O2 per nasal cannula at 2 L. She was given an albuterol aerosol treatment in the emergency room, which improved her symptoms, but her saturations remained less than 90% on room air. She will continue on O2 aerosol treatments as needed and all other medical problems are per the past medical history. MD GAIL GILLETTE/modl /[id number] d: 09/14/16 0126 t: 09/20/16 1013, OUTPATIENT REPORT
--- NOTE | ~2016-09-13 | DS ---
PATIENT'S NAME: VERENICE ROLLINS [facility] AGE: 86 Y [address] ROOM: [address] [place], [place] [address] LOCATION: GPCU ADMIT DATE: 09/13/2016 Discharge Summary DISCHARGE DATE: 09/18/2016 FAMILY PHYSICIAN: Yudith Plasencia MD ATTENDING PHYSICIAN: Markus Cheatham PRINCIPAL DIAGNOSES: 1. Bilateral pulmonary embolism with hypoxia. 2. Metastatic lung cancer, stage IV. 3. History of embolic stroke. 4. Chronic kidney disease. 5. Diastolic congestive heart failure. 6. Adult-onset diabetes type 2. 7. Hyperlipidemia. 8. Hypertension. 9. Nocturnal hypoxia. 10. Recurrent falls. 11. Gout. 12. GERD. SUMMARY: Verenice is an 86-year-old female with known lung cancer, who has been under chemo treatments with Dr. Fragoso. She had a recent fall and then had some problems with hypoxia and was evaluated in the emergency room. She is found to have bilateral pulmonary emboli and a subtherapeutic pro-time. Her Coumadin level has been difficult to manage as it was quite elevated two weeks ago and now subtherapeutic. She is on that for recurrent ischemic strokes. She recently found that her lung cancer was progressing, and so they are planning to start a new chemo in near future. During her hospitalization, she was placed on IV heparin, her Coumadin was increased and her INR followed. Dr. Yao consulted and recommended Lovenox subcutaneously q.12 hours for 3 months rather than Coumadin as the data is better for that in relation to this metastatic lung cancer. Palliative Care also followed and helps with comfort measures. Respiratory Therapy was consulted to obtain home oxygen therapy. She is able to be weaned off daytime oxygen, but her overnight trend oximetry was markedly positive for hypoxia through the night. Her sats score is low and is between 70 and 80% and the vast majority of the time she was below 90%, so 72% of the time between 80 and 90%. Her O2 saturation during the day will be recheck one more time prior to dismissal. Yesterday, she was able to be weaned off oxygen and maintained her sats above 90%. She is currently getting around with a walker. She is more steady and stable, has not had any recurrent falls. Her blood sugars were followed, she is placed on a sliding scale as needed. Her labs followed, she is feeling better, stronger and wanting to go home. I have had nursing staff work with teaching with her and significant other on the Lovenox shots. We will have home health continue to follow as well and then the home oxygen therapy at night will be new. PATIENT'S NAME: VERENICE ROLLINS [facility] AGE: 86 Y [address] ROOM: [place] [address] LOCATION: GPCU ADMIT DATE: 09/13/2016 Discharge Summary DISCHARGE DATE: 09/18/2016 FAMILY PHYSICIAN: Yudith Plasencia MD ATTENDING PHYSICIAN: Markus Cheatham DISMISSAL: Verenice is dismissed in improved condition on 09/18/2016. DISMISSAL MEDICATIONS: 1. Amlodipine 2.5 mg daily. 2. Tenormin 75 mg daily. 3. Uloric 40 mg at HS. 4. Protonix 40 mg daily. 5. Crestor 20 mg daily. 6. Dulera 200/5, two puffs daily. 7. Spiriva 1 inhalation daily. 8. Albuterol HFA 2 puffs every 4 hours as needed. 9. Tylenol 1000 mg every 4 hours as needed for pain. 10. Colace 100 mg daily. 11. Flonase one spray daily p.r.n. congestion. 12. Zofran 4 mg q.6 hours p.r.n. nausea. 13. She is to receive Lovenox 70 mg subcutaneously every 12 hours for three months, through 12/16/2016. We will monitor for any excessive bleeding. She will follow up with Dr. Fragoso next week about initiating a new chemo regimen. She will follow up with me in a week to recheck, sooner if problems. Prognosis guarded. MD ANICETO CARROLL/ernie /[id number] d: 09/19/16 0152 t: 09/19/16 1733, DISCHARGE SUMMARY
[~2016-09-13 11:11] MED LIST changes: -FLONASE 50 MCG/16 GM NOSE; -ZOFRAN4 MG PO
[2016-09-13 11:50] LABS: HEMATOCRIT 34.8 % (30.0-46.0); HEMOGLOBIN 11.4 g/dL (10.0-15.0); MCH 27.7 pg (27.0-34.0); MCHC 32.8 gm/dL (32.0-36.5); MPV 10.3 fl (9.4-12.4); PLATELET COUNT 190 K/uL (150-450); RBC 4.11 M/uL (3.00-5.00); RDW-CV 14.5 % (11.9-14.6); WBC 9.5 K/uL (4.0-11.0)
[2016-09-13 11:53] LABS: MCV 84.7 fl (83.0-98.0)
[2016-09-13 11:59] LABS: INR - (THERAPEUTIC) 1.51 (0.92-1.07); PROTIME 15.9 SECONDS (9.8-11.4)
[2016-09-13 12:09] LABS: ALBUMIN 3.2 gm/dL (3.5-5.0); ANION GAP 12.3 (10.0-19.0); CALCIUM 8.5 mg/dL (8.5-10.5); CREATININE 1.1 mg/dL (0.5-1.1); POTASSIUM 4.3 mMol/L (3.7-5.1); TOTAL BILIRUBIN 0.8 mg/dL (0.0-1.5); TOTAL PROTEIN 6.7 g/dL (6.0-8.4)
[2016-09-13 12:23] LABS: ABSOLUTE NEUTROPHIL CT (ANC) 7.7 K/uL (1.8-7.8); BANDED NEUTROPHIL # 0.5 K/uL (0.0-0.1); BANDED NEUTROPHILS % 5 %; LYMPHOCYTE # 1.1 K/uL (0.8-4.0); LYMPHOCYTE % 12 %; MONOCYTE # 0.5 K/uL (0.0-1.0); SEGMENTED NEUTROPHIL # 7.2 K/uL (1.8-7.8); SEGMENTED NEUTROPHIL % 76 %
[2016-09-13] MEDS ORDERED: ADVAIR 250-501 EACH INH (16:51)
[2016-09-13] MEDS ORDERED: FLONASE 50 MCG/16 GM NOSE (16:51)
[2016-09-13] MEDS ORDERED: ZOFRAN4 MG PO (16:51)
[2016-09-14 07:47] LABS: INR - (THERAPEUTIC) 1.44 (0.92-1.07); PROTIME 15.2 SECONDS (9.8-11.4)
[2016-09-14 07:55] LABS: ANION GAP 12.7 (10.0-19.0); CALCIUM 8.3 mg/dL (8.5-10.5); CREATININE 0.9 mg/dL (0.5-1.1); POTASSIUM 3.7 mMol/L (3.7-5.1)
[2016-09-15 05:05] LABS: HEMATOCRIT 32.9 % (30.0-46.0); MCH 28.4 pg (27.0-34.0); MCHC 33.4 gm/dL (32.0-36.5); MCV 84.8 fl (83.0-98.0); MPV 9.7 fl (9.4-12.4); PLATELET COUNT 182 K/uL (150-450); RBC 3.88 M/uL (3.00-5.00); RDW-CV 14.5 % (11.9-14.6); WBC 8.3 K/uL (4.0-11.0)
[2016-09-15 05:17] LABS: INR - (THERAPEUTIC) 1.83 (0.92-1.07); PROTIME 19.3 SECONDS (9.8-11.4)
[2016-09-15 05:25] LABS: ANION GAP 10.7 (10.0-19.0); BLOOD UREA NITROGEN 10 mg/dL (6-24); CALCIUM 8.2 mg/dL (8.5-10.5); CHLORIDE 103 mMol/L (96-110); CO2 25 mMol/L (22-32); CREATININE 0.7 mg/dL (0.5-1.1); ESTIMATED GFR (MDRD EQUATION) > 60; POTASSIUM 3.7 mMol/L (3.7-5.1); SODIUM 135 mMol/L (135-145)
[2016-09-15 05:49] LABS: ABSOLUTE NEUTROPHIL CT (ANC) 6.6 K/uL (1.8-7.8); BANDED NEUTROPHIL # 0.4 K/uL (0.0-0.1); BANDED NEUTROPHILS % 5 %; LYMPHOCYTE # 0.7 K/uL (0.8-4.0); LYMPHOCYTE % 8 %; MONOCYTE # 0.3 K/uL (0.0-1.0); SEGMENTED NEUTROPHIL # 6.2 K/uL (1.8-7.8); SEGMENTED NEUTROPHIL % 75 %
[2016-09-16 03:26] LABS: BASOPHIL % 0.4 %; EOSINOPHIL # 0.2 K/uL (0.0-0.5); EOSINOPHIL % 3.3 %; HEMATOCRIT 30.5 % (30.0-46.0); IMMATURE GRANULOCYTE % 0.3 %; LYMPHOCYTE # 0.5 K/uL (0.8-4.0); LYMPHOCYTE % 7.4 %; MCH 27.7 pg (27.0-34.0); MCHC 32.8 gm/dL (32.0-36.5); MCV 84.5 fl (83.0-98.0); MONOCYTE # 0.9 K/uL (0.0-1.0); MONOCYTE % 12.1 %; MPV 9.9 fl (9.4-12.4); NEUTROPHIL # (ANC) 5.6 K/uL (1.8-7.8); NEUTROPHIL % 76.5 %; NRBC % 0 /100WBC (0-0.00); PLATELET COUNT 199 K/uL (150-450); RBC 3.61 M/uL (3.00-5.00); RDW-CV 14.5 % (11.9-14.6); WBC 7.3 K/uL (4.0-11.0)
[2016-09-16 03:42] LABS: INR - (THERAPEUTIC) 1.81 (0.92-1.07); PROTIME 19.1 SECONDS (9.8-11.4)
[2016-09-18] MEDS ORDERED: LOVENOX 8080 MG/0.8 SUB-Q (12:24)
== END 2016-09-18 14:40 | disposition home health service (06) | DRG 176 ==
LOC: GACC 11:11 → GPCU 15:17
PROVIDERS: Family Medicine; Internal Medicine; ADMIT Family Medicine
PROC: 3E0F7GC Introduction of Other Therapeutic Substance into Respiratory Tract, Via Natural or Artificial Opening (ICD-10-PCS; principal; 2016-09-17)
DX: I26.99 Other pulmonary embolism without acute cor pulmonale (principal); I13.0 Hypertensive heart and chronic kidney disease with heart failure and stage 1 through stage 4 chronic kidney disease, or unspecified chronic kidney disease; C78.01 Secondary malignant neoplasm of right lung; C79.31 Secondary malignant neoplasm of brain; C79.89 Secondary malignant neoplasm of other specified sites; I50.30 Unspecified diastolic (congestive) heart failure; E11.22 Type 2 diabetes mellitus with diabetic chronic kidney disease; E78.5 Hyperlipidemia, unspecified; I25.10 Atherosclerotic heart disease of native coronary artery without angina pectoris; I35.0 Nonrheumatic aortic (valve) stenosis; I73.9 Peripheral vascular disease, unspecified; J44.9 Chronic obstructive pulmonary disease, unspecified; N18.9 Chronic kidney disease, unspecified; Z51.5 Encounter for palliative care; Z66 Do not resuscitate; Z95.1 Presence of aortocoronary bypass graft; Z98.49 Cataract extraction status, unspecified eye; Z86.73 Personal history of transient ischemic attack (TIA), and cerebral infarction without residual deficits; Z91.81 History of falling; Z79.01 Long term (current) use of anticoagulants; Z85.118 Personal history of other malignant neoplasm of bronchus and lung; G47.34 Idiopathic sleep related nonobstructive alveolar hypoventilation; Z87.891 Personal history of nicotine dependence
CPT/HCPCS: J1642; J1644; J1650; J7030; Q9967

== ENCOUNTER → 2016-09-26 | Outpatient (CLI) | payer MEDICARE, BC ==
[~2016-09-26] MED LIST changes: +FLONASE 50 MCG/16 GM NOSE; +ZOFRAN4 MG PO
== END | disposition disaster alternative care site (69) ==
LOC: GAMB 18:29
DX: T14.90 Injury, unspecified (principal); M25.562 Pain in left knee; I10 Essential (primary) hypertension; I63.9 Cerebral infarction, unspecified; R41.0 Disorientation, unspecified; Z79.01 Long term (current) use of anticoagulants; Z79.899 Other long term (current) drug therapy; Z88.8 Allergy status to other drugs, medicaments and biological substances; Z88.2 Allergy status to sulfonamides; W01.0XXA Fall on same level from slipping, tripping and stumbling without subsequent striking against object, initial encounter

== ENCOUNTER 2016-10-06 12:56 | Inpatient (IN) | payer MEDICARE, BC ==
[~2016-10-06] VITALS: Ht 152.4 cm; Wt 66.5 kg
--- NOTE | ~2016-10-06 | CON ---
PATIENT'S NAME: GAMA ROLLINS [facility] AGE: 86 Y [address] ROOM: [place] [address] LOCATION: GPCU ADMIT DATE: 10/06/2016 Consultation DISCHARGE DATE: FAMILY PHYSICIAN: Yudith Plasencia MD ATTENDING PHYSICIAN: Yolande Fowler DATE OF CONSULTATION: 10/07/2016 REFERRING PHYSICIAN: Preeti Fragoso MD LOCATION: [facility], room 6319. CHIEF COMPLAINT: Palliative care referral for ongoing goals of care conversation and hospice discussion. HISTORY OF PRESENT ILLNESS: The patient is an 86-year-old female, who is well known to Palliative Care Services due to a recent hospitalization, and Palliative Care has been following up weekly at home for additional support. 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 Since her last hospitalization from September 13 through the during which time she was treated for bilateral pulmonary embolism with hypoxia and sent home with Lovenox injections, the patient has been living at [facility] with Home Health Care checking in. The patient was found to be hypoxic by Home Health Care and brought to the emergency room for evaluation. The patient is currently status post cycle #[address] Fragoso, and she reports she is due for her second cycle next week. The patient in the ER was found to have possible pneumonia with a large right pleural effusion and was admitted for IV antibiotics and hypoxia. The patient has a history of recurrent falls. Over the last 3 or 4 months, the patient has been on a downhill decline. Given this, Palliative Care has been consulted to continue goals of care conversations. PREVIOUS OPERATIONS: 1. Bilateral cataracts. 2. Tonsillectomy. 3. Two-vessel CABG. 4. Bilateral CEA. 5. Carpal tunnel release. 6. Bilateral trigger finger surgery. PAST MEDICAL HISTORY: 1. 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 2. Recent bilateral PEs, currently on Lovenox. PATIENT'S NAME: GAMA ROLLINS [facility] AGE: 86 Y [address] ROOM: [place] [address] LOCATION: GPCU ADMIT DATE: 10/06/2016 Consultation DISCHARGE DATE: FAMILY PHYSICIAN: Yudith Plasencia MD ATTENDING PHYSICIAN: Yolande Fowler 3. Aortic valve stenosis. 4. Coronary artery disease. 5. Chronic kidney disease. 6. COPD. 7. History of previous embolic CVAs. 8. Diabetes mellitus type 2. 9. Hyperlipidemia. 10. Hypertension. 11. Peripheral vascular disease. MEDICATIONS: Home medication list: 1. Albuterol 2 puffs every 6 hours as needed. 2. Norvasc 2.5 mg daily. 3. Atenolol 75 mg daily. 4. Lovenox 70 mg subcu twice daily. 5. Uloric 40 mg daily. 6. Dulera 200/5 two puffs daily. 7. Zofran 4 mg every 4 hours as needed. 8. Protonix 40 mg daily. 9. Crestor 20 mg daily. 10. Spiriva 1 puff daily. 11. Diovan 160 mg at bedtime. ALLERGIES: SULFA, QUINOLONES, OXYCODONE, AND LEVOFLOXACIN. SOCIAL HISTORY: The patient is and lives with her long-term significant other. They recently moved to [facility]. She has a history of smoking and quit many years ago. Her significant other also has a history of metastatic cancer and is currently undergoing treatment for this. FAMILY HISTORY: Mother had diabetes, CHF, and hypertension and at the age of 77. Her father had a history of a stroke and at the age of 86. She has 2 brothers with hypertension and a sister who of Parkinson's and a sister who of breast cancer. REVIEW OF SYSTEMS: GENERAL: Positive for fatigue. Appetite has been good to fair. Denies any changes in her weight. No recent noted fever, chills, or night sweats. HEENT: No changes in vision. Her daughter notes that she has had increasing difficulties with her hearing. Denies any ringing in her ears or dizziness. No sinus congestion. No sore throat. PATIENT'S NAME: GAMA ROLLINS [facility] AGE: 86 Y [address] ROOM: [id number] [place], [place] [address] [facility] ADMIT DATE: 10/06/2016 Consultation DISCHARGE DATE: FAMILY PHYSICIAN: Yudith Plasencia MD ATTENDING PHYSICIAN: Yolande Fowler RESPIRATORY: Positive for shortness of breath at rest. Has a very bothersome productive cough. Denies orthopnea. No peripheral edema. GASTROINTESTINAL: No nausea, vomiting, diarrhea, or constipation. No blood in her stools. No difficulties chewing or swallowing. GENITOURINARY: No dysuria. Does have some urinary incontinency at times. MUSCULOSKELETAL: Denies any joint swelling or joint pain. No back pain. Has a history of recurrent falls and does use a walker to get around the house. NEUROLOGIC: Does have chronic neuropathy in her feet. No dizziness, syncope, or seizures. Positive for generalized weakness, nonspecific. INTEGUMENTARY: Does point to a dressing on her left ma that she received during a fall. PSYCHIATRIC: Denies feeling overtly depressed or anxious. Denies insomnia. PHYSICAL EXAMINATION: VITAL SIGNS: Blood pressure 133/65, heart rate 90, temperature 97.7, respirations 30, and O2 saturation 90% on 60% FiO2 on high-flow nasal cannula. GENERAL: Reveals an alert and oriented, extremely hard of hearing elderly white female, who is sitting up in the recliner. Does have mild respiratory distress after activity. HEENT: Normocephalic. She does have alopecia and a healing old scabbed area to the back of her head. Tongue and mucous membranes are moist and pink. Dentition is adequate. Her pupils are equal and reactive to light. Sclerae are non-anicteric. Conjunctivae are pink. CARDIOVASCULAR: Heart tones are regular rate and rhythm. She does have a murmur. RESPIRATORY: Respirations are slightly labored, tachypneic. Lung sounds are diminished bilaterally. Actually, lung sounds are improved from when I had previously examined her at home approximately 1 week ago. GASTROINTESTINAL: Abdomen is soft and nontender. Bowel sounds are present. No masses or organomegaly. MUSCULOSKELETAL: No significant joint deformities. Peripheral pulses are 1+ bilaterally. There is no clubbing, cyanosis, or edema. Skin is warm and dry. Does have a dressing to her left ma. NEUROLOGIC: Grossly intact. Mental status is unremarkable. IMPRESSION AND PLAN: 1. Dyspnea: We will continue on IV antibiotics for pneumonia. She does have a large right pleural effusion on admission. I wonder if a therapeutic thoracentesis would be helpful. We will continue to titrate O2. 2. Weakness. 3. Bilateral cerumen impaction. We will have nursing irrigate her ears to see if this helps with her hearing. 4. Code status. The patient is a DNR/DNI. PATIENT'S NAME: GAMA ROLLINS [facility] AGE: 86 Y [address] ROOM: [id number] [place], [place] [address] LOCATION: GPCU ADMIT DATE: 10/06/2016 Consultation DISCHARGE DATE: FAMILY PHYSICIAN: Yudith Plasencia MD ATTENDING PHYSICIAN: Yolande Fowler I met with the patient; her daughter, Allegra; and her significant other, Tal. I have discussed the patient's declining condition at length with the patient and her family, though this was very difficult given the degree of hearing loss that she has. I have discussed with the patient quality of life versus quantity of life. I discussed the fact that it may be time to transition from focusing on treatment and getting more time to more of a focus on quality of life and managing her symptoms. The patient reports that she does not have much quality left in her life and that she wants to be home. Given this, I did provide quite a bit of education to the patient and her family in regard to hospice services. The patient does tell me that she wants to think about this over the weekend, but does think that this sounds like a good thing. The patient does also report to me that she does not feel as though undergoing any further chemo treatments are going to be helpful in her situation and that at this point, she feels as though she needs to focus more on quality. I provided her emotional support and active listening for the patient and her family. We will give them time to discuss things further and we will re-evaluate on Monday. Answered the patient's and family's questions to their satisfaction. They denied any spiritual needs. We will continue to follow for support and ongoing goals of care conversation. We will eventually have to discuss with family as the patient is currently living in an independent living apartment at [facility] as her condition continues to decline, I am not sure that her significant other, Tal, who is planning to start radiation soon for a cancer in his arm, will be able to provide her the cares that she will need even with the additional support of hospice. We will have to discuss this further with the patient and her family as we see how this course is going to go. A total of 45 minutes was spent with this patient and family, greater than 50% of this time was spent providing education and counseling. Thank you for allowing me to assist this patient and family. SIERRA CUADRA, VISUALIZER FOR DERIC LEVIN MD DLS/modl /[id number] CC: Yudith Plasencia MD d: 10/10/163 t: 10/17/16 1654, CONSULTATION REPORT
--- NOTE | ~2016-10-06 | OR ---
PATIENT'S NAME: GAMA ROLLINS [facility] AGE: 86 Y [address] ROOM: [place] [address] [facility] AD[facility] DATE: 10/06/2016 OR/Procedure Report DISCHARGE DATE: FAMILY PHYSICIAN: Yudith Plasencia MD ATTENDING PHYSICIAN: Yolande Fowler SURGEON: Ovidio Flood MD REHAB CARE ASSISTANT: DATE OF PROCEDURE: 10/09/2016 PROCEDURE: Right-sided thoracentesis. INDICATION FOR PROCEDURE: Right-sided malignant pleural effusion. CONSENT: Risks and benefits of the procedure were discussed with the patient. She agrees to proceed with the procedure. PROCEDURE IN DETAIL: After the informed consent, proper time-out was called by me and the nursing staff. The right chest ultrasound was done by me and the area was marked on the skin, after that the area was prepped and draped in the usual fashion. The area was infiltrated with 1% lidocaine, then the thoracentesis needle was used to invade the pleural space. 835 mL of maroon- colored fluid was obtained. There was no immediate complication. The patient tolerated the procedure well. Thank you for allowing to participate in care of this patient. MD ETHEL DELONG/ernie /[id number] d: 10/10/16 0151 t: 11/14/16 0914, OPERATIVE SUMMARY
--- NOTE | ~2016-10-06 | CON ---
PATIENT'S NAME: GAMA ROLLINS [facility] AGE: 86 Y [address] 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 She was recently admitted on September 13 through September 18 with diagnosis of bilateral PE and hypoxia and was started on Lovenox. She had previously been on Coumadin due to history of previous embolic strokes, but there was difficulty maintaining therapeutic levels of Coumadin. The patient follows with Dr. Fragoso for her cancer. The patient has apparently planned for new chemotherapy and possible palliative care. The patient presented to the hospital with increased shortness of breath and slight hypotension. In the emergency room, she was found to be hypoxic in the 80s. In the emergency room, she was increased to 5 L nasal cannula with an oxygen saturation of 96%. She has a cough of thick yellow sputum. Her respiratory rate was about 36. Her blood pressure was within normal limits. Chest x-ray revealed possible right-sided pleural effusion. Pulmonary consultation was noted. PAST MEDICAL HISTORY: 1. Aortic valve stenosis. 2. Bilateral PE diagnosed in September of 2016, currently on Lovenox. 3. 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 4. Coronary artery disease. 5. Chronic kidney disease. 6. COPD. 7. History of previous embolic CVAs. 8. History of diverticulitis. 9. Type 2 diabetes mellitus. 10. Gout. 11. Hyperlipidemia. 12. Hypertension. 13. Peripheral vascular disease. PAST SURGICAL HISTORY: 1. Bilateral cataract surgery. 2. Left carpal tunnel surgery in 2011. PATIENT'S NAME: GAMA ROLLINS [facility] AGE: 86 Y [address] ROOM: [address] [address] LOCATION: GPCU ADMIT DATE: 10/06/2016 Consultation DISCHARGE DATE: FAMILY PHYSICIAN: Yudith Plasencia MD ATTENDING PHYSICIAN: Yolande Fowler 3. CABG in 2003. 4. Two-vessel. 5. D and C. 6. Tonsillectomy. 7. Surgery on bilateral thumbs for trigger finger. 8. Bilateral CEA. MEDICATIONS: 1. Proventil 2 puffs inhaled q.6 h. 2. Amlodipine 2.5 mg p.o. daily. 3. Atenolol 25 mg p.o. daily. 4. Lovenox 70 mg subcu b.i.d. every 12 hours. 5. Dulera 200 mcg/5 mcg HFA. 6. Zofran. 7. Protonix. 8. Crestor. 9. Spiriva. 10. Diovan. ALLERGIES: OXYCODONE, LEVAQUIN, AND SULFA. FAMILY HISTORY: Two brothers with hypertension. Sister with Parkinson disease. Sister from breast cancer. Her mother at the age of 77, had hypertension, diabetes, and CHF. Father at the age of 86, out of stroke. Another sister with rheumatoid arthritis. SOCIAL HISTORY: She recently moved to [facility] in early September with her significant other, Tal; they have been long-time significant others. She is also undergoing treatment for metastatic cancer. She is retired and she is a former smoker. Smoked from the age 22 to 51. PHYSICAL EXAMINATION: GENERAL: Upon initial evaluation, the patient is lying in bed, appears in mild respiratory distress. VITAL SIGNS: Including blood pressure 135/75, pulse of 95, respiratory rate of 25, O2 saturation is 92% on 8 L, and temperature is 98. HEENT: Eyes are nonicteric. Pupils are equal and reactive to light. The patient is very hard of hearing, even with the hearing aids turned on. Wet mucous membranes. No ear or nasal discharge noted. NECK: Supple. No lymphadenopathy. No jugular venous distention. LUNGS: Decreased bilateral air entry especially on the right. There is bilateral expiratory wheeze. PATIENT'S NAME: GAMA ROLLINS [facility] AGE: 86 Y [address] ROOM: [id number] [place], [place] [address] [facility]ATION: [facility] ADMIT DATE: 10/06/2016 Consultation DISCHARGE DATE: FAMILY PHYSICIAN: Yudith Plasencia MD ATTENDING PHYSICIAN: Yolande Fowler HEART: S1 and S2. No murmurs, rubs, or gallops. ABDOMEN: Soft and nontender. No palpable organs. LOWER EXTREMITIES: No edema, clubbing, or cyanosis. SKIN: Warm and dry. There are no noted lesions. LABORATORY DATA: Laboratory data at the time of evaluation includes UA showing positive leukocytes. Procalcitonin level was less than 0.05. White cell count is 8.3, hemoglobin 9.1, and platelets 287. PT is 11.1, INR is 1.06, and PTT is 37. Sodium is 131, potassium is 3.9, chloride 96, bicarbonate 28, BUN of 13, and creatinine 0.9. GFR 59, alkaline phosphatase 46, AST and ALT are 24 and 50 respectively, total bilirubin 0.6, lactate level is normal at 1.2. RADIOLOGY DATA: Chest x-ray shows worsening appearance since prior imaging, patchy opacity in the mid lower portion of the right lung and left lower lung consistent with infiltrate and atelectasis, right sided pleural effusion. ASSESSMENT AND PLAN: 1. Stage IV metastatic lung cancer, recently diagnosed with bilateral pulmonary embolism, presents with acute on chronic hypoxic respiratory failure with right-sided pleural effusion. 2. At the current point, given the right-sided pleural effusion, the new onset healthcare associated pneumonia. I would recommend to start the patient on antibiotics associated with healthcare associated pneumonia. I would start the patient on linezolid and piperacillin/tazobactam. 3. I would recommend immediate thoracentesis of the right chest for symptomatic relief. 4. Aggressive pulmonary toilet. 5. DuoNeb. 6. Chest PT. 7. We will follow up with you. Thank you for allowing me to participate in the care of this patient. MD ETHEL DELONG/ernie /[id number] d: 10/09/161810 t: 11/14/16910, CONSULTATION REPORT
--- NOTE | ~2016-10-06 | ER ---
PATIENT'S NAME: GAMA ROLLINS [facility] AGE: 86 Y [address] ROOM: [place] [address] LOCATION: GPCU ADMIT DATE: 10/06/2016 ER/Outpatient Report DISCHARGE DATE: FAMILY PHYSICIAN: Yudith Plasencia MD ATTENDING PHYSICIAN: Yolande Fowler Time of Arrival: 1256 hours. Time of Evaluation/Seen: 1305 hours. IDENTIFICATION: An 86-year-old female. CHIEF COMPLAINT: Short of breath. HISTORY OF PRESENT ILLNESS: The patient is an 86-year-old female who lives at [facility] with her . Home Health nurse was there today, and she was found to have orthostatic hypotension with a systolic blood pressure of 80, hypothermic with a temperature of 96.2, increasing O2 requirements, and shortness of breath. The patient has had a cough productive of thick yellow sputum. Most of the history is obtained from the staff and her as she is very hard of hearing. She was prescribed cefdinir on September 30. She has a recent hospitalization, September 13 through for bilateral pulmonary embolism with hypoxia. She has a history of metastatic lung cancer, managed by Dr. Fragoso and has initiated new form of chemotherapy that she is due to get next week. PAST MEDICAL HISTORY: ALLERGIES: NORCO, LEVAQUIN, AND SULFA. CURRENT MEDICATIONS: 1. Amlodipine 2.5 mg daily. 2. Rosuvastatin 20 mg daily. 3. Pantoprazole 40 mg daily. 4. Valsartan 160 mg daily. 5. Atenolol 50 mg one and half tablet daily. 6. Uloric 40 mg daily. 7. Lovenox 70 mg subcutaneous q.12 hours. MEDICAL PROBLEMS: 1. Bilateral pulmonary embolism, on anticoagulation with Lovenox. 2. Metastatic lung cancer, stage IV. Mets to the brain and abdomen. PATIENT'S NAME: GAMA ROLLINS [facility] AGE: 86 Y [address] ROOM: [place] [address] LOCATION: GPCU ADMIT DATE: 10/06/2016 ER/Outpatient Report DISCHARGE DATE: FAMILY PHYSICIAN: Yudith Plasencia MD ATTENDING PHYSICIAN: Yolande Fowler 3. Aortic stenosis. 4. Coronary artery disease. 5. Chronic kidney disease. 6. COPD. 7. Diabetes mellitus. 8. CVA. 9. Diverticulosis. 10. Hyperlipidemia. 11. Hypertension. 12. Peripheral vascular disease. PAST SURGICAL HISTORY: Prior Surgeries: 1. Bilateral cataract surgery. 2. Two-vessel CABG. 3. Bilateral carotid endarterectomy. 4. Left carpal tunnel release. 5. Trigger finger surgery. 6. Tonsils and adenoids. SOCIAL HISTORY: The patient lives here in [place] at [place] with her . She is retired. Tobacco use, quit in 1983. Alcohol use, denies. Drug use, denies. FAMILY HISTORY: Mother with diabetes, CHF, and hypertension, at age 77. Father with stroke, at age 86. Two brothers with hypertension, sister secondary to breast cancer, and a sister secondary to Parkinson's. REVIEW OF SYSTEMS: All systems reviewed and negative other than what is noted in the HPI. PHYSICAL EXAMINATION: VITAL SIGNS: Weight 65.9 kg. Blood pressure 169/100, pulse 80, respiratory rate is 36, temperature 96.7, and sats 94% on 5 L per nasal cannula. GENERAL: An 86-year-old female who is short of breath and fatigue in mild distress. HEENT: Head; normocephalic. The patient has a posterior scalp healing scabbed wound from a previous fall. Eyes; pupils equal and reactive to light and accommodation. Extraocular movements intact. Nose; mucosa pink. No lesions. Mouth; no lesions. Pharynx, benign. NECK: Supple. No lymphadenopathy. LUNGS: Coarse rhonchi and rales with inspiratory and expiratory wheezes. Worse in the left lower lobe. HEART: Regular rate and rhythm. PATIENT'S NAME: GAMA ROLLINS [facility] AGE: 86 Y [address] ROOM: [address] [address] LOCATION: GPCU ADMIT DATE: 10/06/2016 ER/Outpatient Report DISCHARGE DATE: FAMILY PHYSICIAN: Yudith Plasencia MD ATTENDING PHYSICIAN: Yolande Fowler ABDOMEN: Bowel sounds present. Soft, nondistended, nontender. SKIN: Pale, warm, and dry. NEUROLOGIC: No focal deficit. LABORATORY DATA AND IMAGING STUDIES: The patient's port was accessed. Blood cultures x2 have been drawn and those results are pending. Normal sinus rhythm at 80 beats per minute. No acute ST elevation or depression, first-degree AV block. Procalcitonin is less than 0.05. UA; specific gravity of 1.010, pH 6.5, leukocytes positive, 20-50 white cells, negative red cells, 5-10 epithelial cells, and rare bacteria. Culture and sensitivity pending. Hemoglobin 9.1, which is stable; hematocrit 27.4, platelets 287,000; white count 8.3, 85% segs; and 7% lymphocytes. INR 1.06, lactate 1.2. Sodium 131, potassium 3.8, chloride 96, CO2 of 28, BUN 13, creatinine 0.9, and blood sugar 129. Liver enzymes normal. Troponin I is less than 0.040. ProBNP 1561, which is improved from previous proBNP. One- view chest x-ray, worsening in x-ray appearance since prior imaging with patchy opacity in the mid and lower right lung, large right pleural fluid collection, and small left pleural effusion. IMPRESSION: 1. Pneumonia. Plan; pneumonia pathway was initiated. Zosyn 4.5 g IV x1. Azithromycin 500 mg IV x1. Albuterol aerosol treatment. 2. Acute hypoxic respiratory failure. The patient's O2 requirements have increased from her usual 2 L to 5 L. 3. Metastatic lung cancer. Palliative Care met with the patient during her last hospital stay and she is DNR/DNI, but does want aggressive treatment of pneumonia. 4. Urinary tract infection. Antibiotics initiated here in the emergency room. 5. Anemia, stable. 6. Mild hyponatremia. 7. History of pulmonary embolism, on chronic anticoagulation with Lovenox. The patient was taken to the floor, but is in very guarded condition, will be admitted per Dr. Fowler for Dr. Plasencia. MARJAN HAINES MD CAR/modl /[id number] d: 10/06/16 2259 t: 10/07/16 0629, OUTPATIENT REPORT
--- NOTE | ~2016-10-06 | DS ---
PATIENT'S NAME: VERENICE ROLLINS [facility] AGE: 86 Y [address] ROOM: [address] [address] LOCATION: GPCU ADMIT DATE: 10/06/2016 Discharge Summary DISCHARGE DATE: 10/14/2016 FAMILY PHYSICIAN: Yudith Plasencia MD ATTENDING PHYSICIAN: Yolande Fowler SUMMARY DATE OF : 10/14/2016. PRINCIPAL DIAGNOSES: 1. 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 2. Tentatively pneumonia but found not to be pneumonia. 3. Acute hypoxic respiratory arrest due to number one. PROCEDURES: Include thoracentesis x2. SUMMARY: Verenice is an 86-year-old female, who is admitted for acute respiratory distress. Dr. Yolande Fowler admitted her. See her H and P. She was placed on antibiotics empirically. Dr. Flood was consulted, and she underwent thoracentesis, which did help her temporarily. She had reaccumulation of the fluid within a day and had it drained again, which did help, and then further discussions with the family indicated this was a progression of malignancy and comfort cares were instituted. Palliative Care and Hospice were consulted. She was continued on the antibiotics and then that was discontinued on 10/11/2016. We did strictly comfort measures thereafter. She was fairly comfortable and then became less and less responsive. The morphine [employer] was present actually was used. She became less and less responsive after 10/12/2016, unresponsive on 10/13/2016, and then she passed on 10/14/2016. Multiple family meetings were performed. She did try BiPAP at one time and did not tolerate that and elected not to use BiPAP again. Time of was 8:46 a.m. on 10/14/2016 and her body was released to the mortuary. OTHER DIAGNOSES: 1. Chronic hypertension. 2. Chronic kidney disease. 3. Chronic obstructive pulmonary disease. 4. Recent pulmonary emboli. 5. Adult onset diabetes. 6. Gout. PATIENT'S NAME: VERENICE ROLLINS [facility] AGE: 86 Y [address]: [address] [address] [facility] ADMIT DATE: 10/06/2016 Discharge Summary DISCHARGE DATE: 10/14/2016 FAMILY PHYSICIAN: Yudith Plasencia MD ATTENDING PHYSICIAN: Yolande Fowler MD BME/modl /[id number] d: 11/03/16 0309 t: 11/05/16 0833, DISCHARGE SUMMARY
--- NOTE | ~2016-10-06 | HP ---
PATIENT'S NAME: GAMA ROLLINS [facility] AGE: 86 Y [address] ROOM: [id number] [place], [place] [address] LOCATION: GPCU ADMIT DATE: 10/06/2016 History & Physical DISCHARGE DATE: FAMILY PHYSICIAN: Yudith Plasencia MD ATTENDING PHYSICIAN: Yolande Fowler DATE OF SERVICE: CHIEF COMPLAINT: Shortness of breath. HISTORY OF PRESENT ILLNESS: The patient is an 86-year-old, female, whose primary physician is Dr. Yudith Plasencia. 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 She was recently admitted September 13 through September 18 with diagnosis of bilateral PE and hypoxia, and was started on Lovenox. She had previously been on Coumadin due to history of previous embolic strokes, but there was difficulty in maintaining therapeutic level of Coumadin, so after the bilateral PEs were diagnosed, she was transitioned to heparin in the hospital and then Lovenox on discharge. She follows with Dr. Fragoso, who is her oncologist. There is apparently a plan to start a new chemotherapy next week. She has also been evaluated by Palliative Care in the past. She does receive home health, but has declined hospice in the past. When home health evaluated her today at home they found her to be orthostatically hypotensive with systolic blood pressure in the 80s. She was found to be hypoxic with oxygen saturation in the 80s on her home O2 of 2 L/minute. In the emergency room, she was increased to 5 L/minute nasal cannula with an oxygen saturation of 96%. She was found to have a cough of thick yellow sputum. Respiratory rate was 36 with a blood pressure of 130/80 in the emergency room. Chest x-ray was done with concerning findings with a patchy opacity in the mid and lower portion of the right lung and the left lower lung consistent with infiltrate and atelectasis as well as a large right pleural effusion collection with the adjacent lung consolidation in the lower right hemothorax and a small left pleural effusion. She is DNR/DNI. However, a discussion in the emergency room resulted in her wanting to treat this pneumonia. There was a phone call made into the clinic that the patient was having cough and was started on p.o. cefdinir with instructions to follow up the next day, she was not improving. She did not follow up at that time. She has been on the cefdinir since then. PAST MEDICAL HISTORY: 1. Aortic valve stenosis. 2. Bilateral PE diagnosed in September 2016, currently on Lovenox. 3. 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 4. Coronary artery disease. 5. Chronic kidney disease. PATIENT'S NAME: GAMA ROLLINS [facility] AGE: 86 Y [address] ROOM: [place] [address] [facility] AD[facility] DATE: 10/06/2016 History & Physical DISCHARGE DATE: FAMILY PHYSICIAN: Yudith Plasencia MD ATTENDING PHYSICIAN: Yolande Fowler 6. COPD. 7. History of previous embolic CVAs. 8. History of diverticulitis in 2004. 9. Type 2 diabetes. 10. Gout. 11. Hyperlipidemia. 12. Hypertension. 13. Peripheral vascular disease. SURGICAL HISTORY: Bilateral cataract surgery, left carpal tunnel surgery in 2011, CABG in 2003 two-vessel, D and C, tonsillectomy, surgery on bilateral thumbs for trigger finger, bilateral CEA. MEDICATIONS: 1. Proventil 2 puffs inhaled q.6 hours p.r.n. 2. Amlodipine 2.5 mg p.o. daily. 3. Atenolol 25 mg p.o. daily. 4. Lovenox 70 mg subcu q.12 hours. 5. Uloric 40 mg p.o. at bedtime. 6. Dulera 200 mcg/5 mcg HFA inhaler 2 puffs daily. 7. Zofran 4 mg p.o. q.4 hours p.r.n. nausea and vomiting. 8. Protonix 40 mg p.o. daily. 9. Crestor 20 mg p.o. at bedtime. 10. Spiriva 1 puff inhaled daily. 11. Diovan 160 mg p.o. at bedtime. ALLERGIES: OXYCODONE, LEVAQUIN, AND SULFA. FAMILY HISTORY: Two brothers with hypertension. Sister with Parkinson disease. Sister of breast cancer. Mother at age 77, had hypertension, diabetes, and CHF. Father at age 86 out of stroke. There is a sister with rheumatoid arthritis. Paternal aunt with Alzheimer disease. Two paternal cousins with breast cancer and a maternal first cousin with colon cancer. Depression in 2 sisters and a daughter. Type 2 diabetes in 2 maternal aunts and her mother. Hypertension in 2 sisters and her father and her mother. Thyroid disorder in her mother and sister. SOCIAL HISTORY: She recently moved into [facility] in early September with her significant other, Tal. They have been long-time significant others. He is also undergoing treatment for metastatic cancer. She is retired. She is a former smoker. Smoked from the age of [age]. PATIENT'S NAME: GAMA ROLLINS [facility] AGE: 86 Y [address] ROOM: [address] [address] LOCATION: GPCU ADMIT DATE: 10/06/2016 History & Physical DISCHARGE DATE: FAMILY PHYSICIAN: Yudith Plasencia MD ATTENDING PHYSICIAN: Yolande Fowler PHYSICAL EXAMINATION: VITAL SIGNS: Blood pressure 119/52, pulse 82, respiratory rate 28, O2 sat 92% on 8 L/minute, temperature 97.3. GENERAL: She is asleep. She does awaken with questioning, but states that she prefers to go back to sleep. History is obtained from the clinic chart, hospital chart, and discussion with the ER physician. SKIN: Warm, pink, and dry. HEART: Regular rate and rhythm without murmur. LUNGS: She has decreased breath sounds, the right side and the left base. Decent breath sounds heard on auscultation of the left upper lobe. ABDOMEN: Soft, nontender, and nondistended. No masses palpated. EXTREMITIES: No peripheral edema noted. LABS: A1c 6.1%. UA shows positive leukocytes, negative nitrite, 20-50 WBCs, negative RBCs, 5-10 epithelial cells. Procalcitonin level is less than 0.05. WBCs 8.3 with hemoglobin 9.1 (was 10 in September), platelets 287. PT 11.1, INR 1.06, PTT 37. Sodium 131, potassium 3.9, chloride 96, bicarb 28, BUN 13, creatinine 0.9. GFR 59. Alk phos 46, AST 24, ALT 15, and total bilirubin 0.6. Lactate level is normal at 1.2. RADIOLOGY: Chest x-ray shows worsening appearance since prior imaging. Patchy opacity in the mid and lower portion of the right lung and left lower lung consistent with infiltrate and atelectasis. Large right-sided pleural fluid collection with adjacent lung consolidation in the lower right hemithorax. Small left pleural effusion. ASSESSMENT AND PLAN: 1. Stage IV metastatic lung cancer. Recently diagnosed bilateral pulmonary embolisms, on Lovenox. Now with hypoxia and evidence of right middle lobe, right lower lobe, and left lower lobe opacity consistent with infiltrate as well as a large right pleural fluid collection with adjacent lung consolidation in the lower right hemithorax and a small left pleural effusion. Failed on outpatient cefdinir. Started on Zosyn and azithromycin. WBC normal. Lactate and procalcitonin normal. Afebrile. Increasing oxygen requirements. Was on simple mask at 8 L/minute, but the patient not tolerating. I have discussed with Respiratory Therapy and we will advance to high-flow. The patient is DNR/DNI. Her primary physician, Dr. Plasencia will resume care in the morning. Palliative Care has followed this patient in the past and we will notify them of her current admission as well. She does have known chronic obstructive pulmonary disease. We will continue with her home medications. RT is scheduled and DuoNeb q.6 hours. We will also notify PATIENT'S NAME: GAMA ROLLINS [facility] AGE: 86 Y [address] ROOM: [address] [place] [address] [facility] AD[facility] DATE: 10/06/2016 History & Physical DISCHARGE DATE: FAMILY PHYSICIAN: Yudith Plasencia MD ATTENDING PHYSICIAN: Yolande Fowler her oncologist Dr. Fragoso as a courtesy consult of the patient's admission. 2. Diabetes, stable. Continue with home medications. 3. Hyperlipidemia. Stable. Continue home medications. 4. Hypertension. Stable. Continue with home medications. 5. Gout. Stable. Continue home medications. 6. Chronic kidney disease. Stable. 7. Coronary artery disease. Stable. MD RICARDO CORRIGAN/ernie /[id number] D: 213 T: [id number] HISTORY & PHYSICAL
--- NOTE | ~2016-10-06 | OR ---
PATIENT'S NAME: GAMA ROLLINS [facility] AGE: 86 Y [address] ROOM: [place] [address] LOCATION: GPCU ADMIT DATE: 10/06/2016 OR/Procedure Report DISCHARGE DATE: FAMILY PHYSICIAN: Yudith Plasencia MD ATTENDING PHYSICIAN: Yolande Fowler SURGEON: Ovidio Flood MD PURIFICATION OPERATOR: DATE OF PROCEDURE: 10/08/2016 PROCEDURE: Ultrasound-guided right thoracentesis. INDICATION FOR PROCEDURE: Right-sided pleural effusion. CONSENT: Risks and benefits of the procedure including risk of bleeding, infection, and pneumothorax was discussed with the patient. She agrees to proceed with the procedure. PROCEDURE IN DETAIL: After the informed consent, proper time-out was called by me and the nursing staff, the right chest ultrasound was done by me. The pocket of fluid was located and was marked on the skin, after that the area was prepped and draped in the usual fashion, then the area was infiltrated with 1% lidocaine, then the thoracentesis needle was inserted into the pleural space. Dark straw colored fluid was obtained. The catheter was advanced over the needle without resistance, 1700 mL of fluid were obtained. There were no immediate complications. The patient tolerated the procedure well. MD ETHEL DELONG/ernie /[id number] d: 10/09/161749 t: 11/14/16908, OPERATIVE SUMMARY
[2016-10-06 13:48] LABS: HEMATOCRIT 27.4 % (30.0-46.0); HEMOGLOBIN 9.1 g/dL (10.0-15.0); MCH 28.4 pg (27.0-34.0); MCHC 33.2 gm/dL (32.0-36.5); MCV 85.6 fl (83.0-98.0); MPV 9.6 fl (9.4-12.4); RDW-CV 15.8 % (11.9-14.6); WBC 8.3 K/uL (4.0-11.0)
[2016-10-06 13:49] LABS: PLATELET COUNT 287 K/uL (150-450)
[2016-10-06 14:02] LABS: PTT 37 SECONDS (25-32)
[2016-10-06 14:09] LABS: ALBUMIN 2.7 gm/dL (3.5-5.0); ALK PHOS 46 IU/L (33-138); ALT 15 IU/L (12-78); ANION GAP 10.8 (10.0-19.0); AST 24 IU/L (10-40); BLOOD UREA NITROGEN 13 mg/dL (6-24); CALCIUM 7.9 mg/dL (8.5-10.5); CHLORIDE 96 mMol/L (96-110); CO2 28 mMol/L (22-32); CREATININE 0.9 mg/dL (0.5-1.1); ESTIMATED GFR (MDRD EQUATION) 59; POTASSIUM 3.8 mMol/L (3.7-5.1); SODIUM 131 mMol/L (135-145); TOTAL PROTEIN 6.1 g/dL (6.0-8.4)
[2016-10-06 14:11] LABS: TOTAL BILIRUBIN 0.6 mg/dL (0.0-1.5)
[2016-10-06 14:12] LABS: ABSOLUTE NEUTROPHIL CT (ANC) 7.1 K/uL (1.8-7.8); LYMPHOCYTE # 0.6 K/uL (0.8-4.0); LYMPHOCYTE % 7 %; MONOCYTE # 0.7 K/uL (0.0-1.0); SEGMENTED NEUTROPHIL # 7.1 K/uL (1.8-7.8); SEGMENTED NEUTROPHIL % 85 %
[2016-10-06 14:20] LABS: INR - (THERAPEUTIC) 1.06 (0.92-1.07); PROTIME 11.1 SECONDS (9.8-11.4)
[2016-10-06 14:33] LABS: BILIRUBIN URINE NEGATIVE (NEGATIVE); BLOOD URINE NEGATIVE /UL (NEGATIVE); COLOR URINE YELLOW (YELLOW); GLUCOSE URINE NEGATIVE (NEGATIVE); KETONE URINE NEGATIVE (NEGATIVE); LEUKOCYTES URINE 500 /UL (NEGATIVE); NITRITE URINE NEGATIVE (NEGATIVE); PH URINE 6.5 (4.0-8.0); PROTEIN URINE 30 mg/dL (NEGATIVE); UROBILINOGEN URINE 1 mg/dL (NORMAL)
[2016-10-06 14:39] LABS: TURBIDITY URINE 1+ (CLEAR)
[2016-10-06 14:40] LABS: RBC URINE NEGATIVE #/HPF (NEGATIVE); WBC URINE 20-50 #/HPF (NEGATIVE)
[2016-10-06 14:41] LABS: BACTERIA URINE RARE (NEGATIVE)
[2016-10-06] MEDS ORDERED: OMNICEF 300MG300 MG PO (16:52)
--- NOTE | 2016-10-06 17:47 | NUR ---
Pt is 86 y/o female admit for pneumonia for . Pt allergic to levaquin, sulfa,hydrocodone. Red and yellow bracelet. Pt alert and oriented x3 but very [place] even with bilat hearing aids, she has some difficulty. Resides at [facility] side with her significant other. Hx CVA,chronic sinus, lung CA with mets to brain,htn,CABG,CHF,COPD,bronchitis,pneumonia,GI bleed, anemia,depression,anxiety,DM. PT has had frequent falls and is an ultra high fall risk.
--- NOTE | 2016-10-07 05:08 | NUR ---
Significant events: Pt alert, disoriented to time. VSS, SBP 100-130's, HR 60-90. Initially on 6L, increased to 60% hi-flow throughout shift, tachypnic. Lungs coarse, wheezes heard at times. Murmur hear. Very [place]. L) chest port in place. Voids per bedpan. Slept most of shift. NO complaints of pain.
[2016-10-07 05:51] LABS: ANION GAP 10.7 (10.0-19.0); CALCIUM 7.9 mg/dL (8.5-10.5); CREATININE 0.9 mg/dL (0.5-1.1); POTASSIUM 3.7 mMol/L (3.7-5.1)
[2016-10-07 05:58] LABS: BASOPHIL % 0.4 %; EOSINOPHIL # 0.1 K/uL (0.0-0.5); EOSINOPHIL % 1.6 %; HEMATOCRIT 27.1 % (30.0-46.0); HEMOGLOBIN 8.7 g/dL (10.0-15.0); IMMATURE GRANULOCYTE % 0.4 %; LYMPHOCYTE # 0.5 K/uL (0.8-4.0); MCH 27.5 pg (27.0-34.0); MCHC 32.1 gm/dL (32.0-36.5); MCV 85.8 fl (83.0-98.0); MONOCYTE % 11.8 %; MPV 9.4 fl (9.4-12.4); NEUTROPHIL # (ANC) 6.8 K/uL (1.8-7.8); NEUTROPHIL % 79.8 %; NRBC % 0 /100WBC (0-0.00); PLATELET COUNT 273 K/uL (150-450); RBC 3.16 M/uL (3.00-5.00); RDW-CV 15.9 % (11.9-14.6); WBC 8.6 K/uL (4.0-11.0)
--- NOTE | 2016-10-07 10:13 | NUR ---
Reviewed chart and talked with [facility]. She is planning to meet with pt and daughter today, may be time to move to hospice care. Reviewed health care aide notes from previous admission, lives at [place] in independent apartment with significant other who is also currently going through cancer treatment, has [facility] following at home but has declined extra help through [facility]. Has long term care administrator care insurance but will not cover caregivers in home, only [facility] or SNF. Has been to SNF in past. Crystal Calibrator will follow to assist with dc planning/placement if needed.
--- NOTE | 2016-10-07 17:25 | NUR ---
Significant Event: Patient A/O x 3. Up to chair and bedside commode with 1-2 assist. VSS on 55-60% high flow oxygen. Wheezing and coarseness present to lungs at times. Frequent cough. Denies pain throughout the day. L)chest port with TETE infusing otherwise saline locked. Irrigated both ears out today due to impaction. Helped some. Palliative Care SUPERVISOR SHEARING spoke with family today. Follow up: Continue as per plan of care.
--- NOTE | 2016-10-08 07:19 | NUR ---
Significant Event: Patient is alert/oriented x3, very hard of hearing. Vital signs are stable. On 55-66% high flow O2. Denies any pain. Patient is a very heavy 2A to BSC. Continues on Zosyn via left chest port. Follow up: Continue to monitor per plan of care.
--- NOTE | 2016-10-08 18:43 | NUR ---
PATIENT HAD A THORACENTESIS TODAY OF THE RIGHT SIDE, 1750ML WAS DRAINED OFF. PATIENT STATES SHE FEELS MUCH BETTER AND HAS RESTED WELL ALL DAY. SATS HAVE INCREASED FOM 91 TO 98% AFTER THORACENTESIS. PATIENT IS VERY HARD OF HEARING.
--- NOTE | 2016-10-09 04:36 | NUR ---
Significant Event: PATIENT IS A/O X3. VSS. PATIENT ON HIGH FLOW FIO2 66% AT BEGINNING OF SHIFT. PATIENT IS HARD OF HEARING. ANTIBIOTIC VIA LEFT CHEST PORT. PATIENT 2 ASSIST BSC. AT 0300 PATIENT O2 SATS IN 85-88 RANGE. FIO2 NOW AT 85% SATS AT 98-100. PATIENT HAS DENIED PAIN. Follow up: FOLLOW CARE PLAN.
[2016-10-09 13:47] LABS: HEMATOCRIT 25.4 % (30.0-46.0); HEMOGLOBIN 8.1 g/dL (10.0-15.0); MCH 27.9 pg (27.0-34.0); MCHC 31.9 gm/dL (32.0-36.5); MCV 87.6 fl (83.0-98.0); PLATELET COUNT 249 K/uL (150-450); RDW-CV 16.3 % (11.9-14.6); WBC 9.6 K/uL (4.0-11.0)
[2016-10-09 14:16] LABS: ABSOLUTE NEUTROPHIL CT (ANC) 8.1 K/uL (1.8-7.8); LYMPHOCYTE # 0.4 K/uL (0.8-4.0); LYMPHOCYTE % 4 %; MONOCYTE # 0.6 K/uL (0.0-1.0); SEGMENTED NEUTROPHIL # 8.1 K/uL (1.8-7.8); SEGMENTED NEUTROPHIL % 84 %
--- NOTE | 2016-10-09 19:12 | NUR ---
PATIENT HAS HAD INCREASE SHORTNESS OF BREATH THROUGHOUT THE DAY. CHEST XRAY SHOWED PLEURAL EFFUSION HAS RETURNED. PATIENT HAS BEEN PLACED ON BIPAP TO INCREASED OXYGENATION. PLAN FOR DR. PEARCE TO COME IN AND DRAIN PLERUAL EFFUSION TONIGHT DUE TO LOVENOX BEEN GIVEN THIS AM. PATIENT AND FAMILY ARE AWARE OF PLAN.
--- NOTE | 2016-10-10 05:22 | NUR ---
PATIENT REFUSED 0300 ASSESSMENT.
--- NOTE | 2016-10-10 05:40 | NUR ---
Significant Event: PATIENT A/O X3. VSS. PATIENT ON BI PAP FIO2 85%. PATIENT BECAME AGITATED AND WOULD NOT LEAVE ON BI PAP MASK. AT 2100 DR. PEARCE DID A THORACENTESIS, 875 OF PLEURAL FLUID REMOVED FROM RIGHT SIDE. PATIENT WAS THEN SWICHED TO HIGH FLOW AT 2200 ON 65% FIO2. AT 3RD ASSESSMENT PATIENT WAS VERY RESTLESS, REFUSING TO LEAVE ON HIGH FLOW CANNULA, SATS DROPED TO 85-89. DR. PEARCE NOTEIFIED, ABG'S ORDERD. PATIENT REFUSED TO HAVE BLOOD DRAWN FOR ABG'S AND REFUSED ALL CARES. DR PEARCE AWARE AND WILL BE VISTING WITH FAMILY THIS AM. Follow up: FOLLOW CARE PLAN
--- NOTE | 2016-10-10 16:32 | NUR ---
Introduced self and care management services to patient, significant other Bill while [facility] palliative care visiting with them. Daughter Allegra comes while we are talking. Patient decided and Tal and Allegra support her decision to go with Hospice. Her goal is to get back to her apartment at [place], does not want to stay in hospital, and Tal will talk with their current forepart reducer caregiver Kelley to see if she can provide any more hours or know of other people who might, and daughter will call [facility] and [facility] to look into caregivers. Daughter and family will try to supplement care as well. Will call [facility] in the morning to start referral. [facility] visited with patient and Tory about pleuryx drain (as well as [facility] Pimentel for Dr Carson) and patient decided she does not want permanent drain in her chest. She also decided she does not want the bipap placed back on, would like medication to be given for comfort instead. Tory support that decision. [facility] palliative care will write orders. Will continue to follow.
--- NOTE | 2016-10-10 17:30 | NUR ---
Significant Event: Patient A/O x 3. TANANA. Up with 1-2A to pivot transfer. VSS. SBP in the 90's and held blood pressure medications this morning. On 60-70% FiO2 per high flow throughout the day. Palliative care discussed with patient and family the plan of care today. Patient wants to get back to [place] on hospice and does not want pleurx drain. Denies pain throughout the day. Follow up: Continue as per plan of care. Plan to discharge back to [place] on hospice when stable.
--- NOTE | 2016-10-11 04:39 | NUR ---
Significant Event: The patient is Alert and Oriented x3. Denies N/T. Moves all extremities spontaneously and to command. Up with 2 Assist, Gaitbelt to the commode. Denies Pain. Voided 200ml this shift, no discomfort and refused a morrow. VSS. On 75% FiO2 per the [place] Flow NC. Port to the Left chest. Generalized bruising and abrasions. Follow up:
--- NOTE | 2016-10-11 12:36 | NUR ---
Reviewed chart and talked with [facility] palliative care. Pt O2 needs went up and giving meds for dyspnea. Things may change but goal is still to go back to [facility] apartment with [facility] and daughter contacted [facility] and they are here talking with pt and family as well for private caregiving services. I called and faxed referral to [facility], asked them to contact family to come assess with above goal in mind. Also asked [facility] to evaluate for appropriateness of inpt Hospice in case condition continues to deteriorate quickly.
--- NOTE | 2016-10-11 15:58 | NUR ---
SCREENED D/T LOS. PT IS COMFORT MEASURES. NO NUTRITION RISK. WILL ASSIST NEEDED.
--- NOTE | 2016-10-11 17:36 | NUR ---
Significant Event: PT MADE COMFORT CARES THIS AM, VS Q SHFT AND PRN. GETTING UP TO COMMODE AND REALLY DOES PRETTY WELL. FAMILY AT BEDSIDE. MS FOR EASIER BREATHING. 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 Follow up: MONITOR, COMFORT
--- NOTE | 2016-10-12 05:27 | NUR ---
Significant Event: Patient responds little to RN. Hard to assess Neuro. Possibly becoming more confused? HR 80s-130s. Switched from AFIB/AFlutter to Sinus Tach this shift. Dr. Light notified. 80%s-90%s O2 on 75%-90% FiO2 per High Flow. RN talked with daughter at bedside regarding O2 options. Stated family and patient do not want BiPAP. Do not want High Flow turned up higher than 90% FiO2. Will continue breathing treatments and Morphine for air hunger. Robert catheter placed this shift with 475ml uop output. 2ml Morphine given x5 with relief to patient. Turned and repositioned PRN. Patient restless at times. Dangles at bedside often. Bed alarm on at all times. Follow up: Will continue efforts to make patient comfortable.
--- NOTE | 2016-10-13 05:52 | NUR ---
Significant Event: Patient unresponsive most of shift. Rarely opens eyes or speaks. Morphine TEST DECK SUPERVISOR continues with 0.25ml continuous dose and 0.25ml demand with 15min lockout. 16 attempts with 15 given for total of 5.73ml. NS TKO with TEST DECK SUPERVISOR to left chest port. Additional 2mg Morphine given x5 and 5mg Roxicodone given x1 per family request/air hunger. Atropine drops given x3. Patient repositioned per family request. Continues on 90% FiO2 per High Flow. Patient's O2 sats 60%s-70%s. 100ml uop. Patient resting peacefully. Family continues at bedside. Follow up: Hospice consult today.
--- NOTE | 2016-10-13 09:17 | NUR ---
Reviewed chart and talked with [facility] palliative [facility], pt unresponsive and adjusting meds and O2. Karen spoke with [facility] today and asked for extra bereavement support for Bill. Caustic Room Operator following if there are any needs we can assist with.
--- NOTE | 2016-10-13 19:01 | NUR ---
Significant Event: PT. UNRESPONSIVE. MOVES TOES WITH PITCH TOUCH. CLOSES MOUTH ON MOUTH SWAB. NO VERBAL RESPONSE. REPOSITIONED AT FAMILY REQUEST. HOB ELEVATED 45 DEGREES. ON 3 LPM NC. RESP. 24-28/MIN. IV MORPHINE COMMUNITY SERVICE COORDINATOR CONT. ORDERED. ALENA STEARNS RN INTO SEE PT. AND FAMILY. Follow up: COMFORT MEASURES.
--- NOTE | 2016-10-14 05:24 | NUR ---
Significant events: Pt unresponsive. Repositioned per family request and per nursing discretion. Robert with 50mL out. WET PAN OPERATOR continues. O2 sat at 0200 68%, RR 24-40. Atropine given x2. Family at bedside. Mouth swabs as needed. Continue [facility] comfort cares
--- NOTE | 2016-10-14 09:13 | NUR ---
0846: PT. AT THIS TIME. FAMILY MEMBERS AT BEDSIDE. SEE EXPIRATION RECORD. LELAND SAMUEL AND Ruth FUNEZ RN PRONOUCED PT. .
--- NOTE | 2016-10-14 11:07 | NUR ---
PT. TAKEN PER STRETCHER VIA TRANSPORT TEAM TO [facility] IN LAB. DANIEL/DAKOTAH NOTIFIED. PT. HAD A GOLD COLORED RING WITH WHITE STONE ON RT. HAND AND A GOLD COLORED RING ON LT. HAND WITH WHITE COLORED STONE. A WATCH ON HER LT. ARM. THE REST OF HER BELONGINGS SENT HOME WITH FAMILY MEMBERS.
== END 2016-10-14 11:10 | disposition expired | DRG 180 ==
LOC: GMED 12:56 → GPCU 15:09
PROVIDERS: Family Medicine; ADMIT Family Medicine
PROC: 0W993ZZ Drainage of Right Pleural Cavity, Percutaneous Approach (ICD-10-PCS; principal; 2016-10-08)
PROC: 0W993ZZ Drainage of Right Pleural Cavity, Percutaneous Approach (ICD-10-PCS; 2016-10-09)
DX: C34.90 Malignant neoplasm of unspecified part of unspecified bronchus or lung (principal); J96.21 Acute and chronic respiratory failure with hypoxia; J91.0 Malignant pleural effusion; C79.31 Secondary malignant neoplasm of brain; N39.0 Urinary tract infection, site not specified; J44.9 Chronic obstructive pulmonary disease, unspecified; E11.22 Type 2 diabetes mellitus with diabetic chronic kidney disease; Z51.5 Encounter for palliative care; E11.51 Type 2 diabetes mellitus with diabetic peripheral angiopathy without gangrene; E87.1 Hypo-osmolality and hyponatremia; I12.9 Hypertensive chronic kidney disease with stage 1 through stage 4 chronic kidney disease, or unspecified chronic kidney disease; Z66 Do not resuscitate; Z86.711 Personal history of pulmonary embolism; D64.9 Anemia, unspecified; I25.10 Atherosclerotic heart disease of native coronary artery without angina pectoris; Z87.891 Personal history of nicotine dependence; M10.9 Gout, unspecified; Z79.01 Long term (current) use of anticoagulants; Z86.73 Personal history of transient ischemic attack (TIA), and cerebral infarction without residual deficits; Z95.1 Presence of aortocoronary bypass graft; Y95 Nosocomial condition; Z91.81 History of falling; H61.23 Impacted cerumen, bilateral; I95.1 Orthostatic hypotension; N18.9 Chronic kidney disease, unspecified; E78.5 Hyperlipidemia, unspecified
CPT/HCPCS: A9270; J0456; J1650; J2270; J2543; J7030; J7050

== ENCOUNTER → 2016-10-06 | Outpatient (CLI) | payer MEDICARE, BC | END | disposition disaster alternative care site (69) | LOC: GAMB 12:29 | DX: R06.9 Unspecified abnormalities of breathing (principal); I95.9 Hypotension, unspecified; I10 Essential (primary) hypertension; R06.02 Shortness of breath; Z86.73 Personal history of transient ischemic attack (TIA), and cerebral infarction without residual deficits; Z79.01 Long term (current) use of anticoagulants; Z79.899 Other long term (current) drug therapy; Z88.2 Allergy status to sulfonamides; Z88.1 Allergy status to other antibiotic agents | CPT/HCPCS: A0422; A0425; A0427 ==